=== PATIENT | female | born 1940 | race Caucasian/White ===

== ENCOUNTER 2016-08-13 16:32 | Inpatient (IN) | payer OTHER ==
[2016-08-13 16:50] VITALS: RESP 16
[2016-08-13] MEDS ORDERED: NS 1,000 ML IV ONE (17:00)
--- NOTE | 2016-08-13 17:00 | EDPHY ---
H & P Time Seen by Provider: 08/13/16 16:55 HPI/ROS: Chief complaint. Abdominal pain HPI. 76-year-old female presents emergency department with abdominal pain for 1 month. It was felt to be constipation 1 month ago and she has been being treated with MiraLax. Increased discomfort over the past 10 days worse with movement and so she quit riding her bike and walking. She has had decreased appetite. However in the past 24 hours she has had 3 or 4 episodes of vomiting per her . Her pain is generalized and somewhat crampy. She feels she is distended. The patient and her here gurgling in her abdomen. She has had her appendix and gallbladder removed. She has had no fever, chest pain , shortness of breath. She denies urinary symptoms. Saw her physician today who referred her to the emergency department. They are trying to be evaluated by GI and have an appointment in September Constitutional. no fever/chills, no weakness Eyes. no problems with vision ENT. no sore throat, no nasal drainage Cardiovascular. no chest pain Respiratory. no shortness of breath, no cough Abdominal. Abdominal pain with nausea and vomiting . no problems urinating MS. no calf pain/swelling, no neck/back pain, no joint pain Skin. no rash Lymph. no swollen glands Neuro. 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 ENT, Mouth: Mucous membranes are moist. Respiratory: There are no retractions, lungs are clear to auscultation. Cardiovascular: Regular rate and rhythm. Gastrointestinal: Abdomen is soft diffusely tender. No masses. Increased bowel sounds. Neurological: Awake and alert, sensory and motor exams grossly normal. Skin: Warm and dry, no rashes. Musculoskeletal: Neck is supple nontender. Extremities symmetrical, full range of motion. Psychiatric: Patient is oriented X 3, there is no agitation. Constitutional: Initial Vital Signs Temperature (C) 36.5 C 08/13/16 16:47 Heart Rate 72 08/13/16 16:47 Respiratory Rate 16 08/13/16 16:47 Blood Pressure 133/81 H 08/13/16 16:47 O2 Sat (%) 95 08/13/16 16:47 O2 Delivery Mode Room Air Allergies/Adverse Reactions: Penicillins Allergy (Verified 03/30/15 16:59) Medical Decision Making - Diagnostics Imaging Results: Imaging Impressions Abdomen CT 08/13/16 17:00 Impression: 1. Mildly dilated loops of large and small bowel may reflect enteritis or given the chronicity of symptomatology this may represent a problem with bowel motility. 2. See above report for additional findings. Results called and discussed with LORENZO SPEARS M.D. on 08/13/2016 at 18:50 CT abdomen pelvis with IV contrast shows mildly dilated loops of intestine. No air-fluid levels. No free air. Trace fluid in the pelvis. No evidence for small bowel obstruction. Surgically absent gallbladder, appendix, uterus. There is diffuse constipation Procedures: IV normal saline, Zofran ED Course/Re-evaluation: Re-evaluation at 6:50 p.m.--patient is stable. She, her , and I discussed imaging and lab results. We discussed treatment plan. They feel that she is really unable to go home and they are unable to continue her care at home. I recommended Admission they expressed understanding and agreement I consulted discussed case with Dr. Duke, gastroenterology, who will see the patient in the hospital I consulted and discussed case with Dr. Nuñez, hospitalist, who agrees to the admission Differential Diagnosis: I considered small-bowel obstruction, urinary tract infection, diverticulitis, constipation. This looks like a functional constipation with slow transit - Data Points Laboratory Results: Laboratory Results 08/13/16 17:11 08/13/16 17:11 08/13/16 08/13/16 08/13/16 17:55 17:11 17:11 WBC 6.70 10^3/uL 10^3/uL (3.80-9.50) RBC 4.45 10^6/uL 10^6/uL (4.18-5.33) Hgb 14.4 g/dL g/dL (12.6-16.3) Hct 41.9 % % (38.0-47.0) MCV 94.2 fL fL (81.5-99.8) MCH 32.4 pg pg (27.9-34.1) MCHC 34.4 g/dL g/dL (32.4-36.7) RDW 12.5 % % (11.5-15.2) Plt Count 231 10^3/uL 10^3/uL (150-400) MPV 11.9 fL H fL (8.7-11.7) Neut % (Auto) 68.8 % % (39.3-74.2) Lymph % (Auto) 24.6 % % (15.0-45.0) [place] % (Auto) 5.2 % % (4.5-13.0) Eos % (Auto) 0.7 % % (0.6-7.6) Baso % (Auto) 0.4 % % (0.3-1.7) Nucleat RBC Rel Count 0.0 % % (0.0-0.2) Absolute Neuts (auto) 4.60 10^3/uL 10^3/uL (1.70-6.50) Absolute Lymphs (auto) 1.65 10^3/uL 10^3/uL (1.00-3.00) Absolute Monos (auto) 0.35 10^3/uL 10^3/uL (0.30-0.80) Absolute Eos (auto) 0.05 10^3/uL 10^3/uL (0.03-0.40) Absolute Basos (auto) 0.03 10^3/uL 10^3/uL (0.02-0.10) Absolute Nucleated RBC 0.00 10^3/uL 10^3/uL (0-0.01) Immature Gran % 0.3 % % (0.0-1.1) Immature Gran # 0.02 10^3/uL 10^3/uL (0.00-0.10) Sodium 141 mEq/L mEq/L (134-144) Potassium 4.5 mEq/L mEq/L (3.5-5.2) Chloride 104 mEq/L mEq/L (97-110) Carbon Dioxide 26 mEq/l mEq/l (22-31) Anion Gap 11 mEq/L mEq/L (8-16) BUN 12 mg/dL mg/dL (7-23) Creatinine 0.6 mg/dL mg/dL (0.6-1.0) Estimated GFR > 60 Glucose 85 mg/dL mg/dL (70-100) Calcium 9.7 mg/dL mg/dL (8.5-10.4) Total Bilirubin 1.1 mg/dL mg/dL (0.1-1.4) Conjugated Bilirubin 0.1 mg/dL mg/dL (0.0-0.5) Unconjugated Bilirubin 1.0 mg/dL mg/dL (0.0-1.1) AST 48 IU/L H IU/L (14-46) ALT 62 IU/L H IU/L (9-52) Alkaline Phosphatase 77 IU/L IU/L (38-126) Total Protein 7.3 g/dL g/dL (6.3-8.2) Albumin 4.7 g/dL g/dL (3.5-5.0) Lipase 125.0 IU/L IU/L (23-300) Urine Color PALE YELLOW Urine Appearance CLEAR Urine pH 6.0 (5.0-7.5) Ur Specific [place] 1.006 (1.002-1.030) Urine Protein NEGATIVE (NEGATIVE) Urine Ketones TRACE H (NEGATIVE) Urine Blood NEGATIVE (NEGATIVE) Urine Nitrate NEGATIVE (NEGATIVE) Urine Bilirubin NEGATIVE (NEGATIVE) Urine Urobilinogen NEGATIVE EU EU (0.2-1.0) Ur Leukocyte Esterase NEGATIVE (NEGATIVE) Urine Glucose NEGATIVE (NEGATIVE) Medications Given: Discontinued Medications Sodium Chloride (Ns) 1,000 mls @ 0 mls/hr IV ONCE ONE PRN Reason: Wide Open Stop: 08/13/16 17:01 Last Admin: 08/13/16 17:02 Dose: 1,000 mls Ondansetron HCl (Zofran) 4 mg IVP EDNOW ONE Stop: 08/13/16 17:20 Last Admin: 08/13/16 17:27 Dose: 4 mg Departure - Departure Disposition: [facility] Acute Clinical Impression: Abdominal pain Qualifiers: Abdominal location: generalized Qualified Code(s): R10.84 - Generalized abdominal pain Condition: Fair Referrals: Aubrey Townsend MD [Primary Care Provider] - As per Instructions
[2016-08-13] MEDS ORDERED: ONDANSETRON 4 MG/2 ML VIAL IVP ONE (17:19)
[2016-08-13] MEDS ORDERED: ONDANSETRON 4 MG/2 ML VIAL ONE (17:19)
[2016-08-13 17:31] LABS: % IMMATURE GRANULYOCYTES 0.3 % (0.0-1.1); ABSOLUTE IMMATURE GRANULOCYTES 0.02 10^3/uL (0.00-0.10); ADD DIFF? NO; ADD MORPH? NO; ADD SCAN? NO; ATYPICAL LYMPHOCYTE FLAG 10 (0-99); FRAGMENT RBC FLAG 0 (0-99); HEMATOCRIT 41.9 % (38.0-47.0); HEMOGLOBIN 14.4 g/dL (12.6-16.3); LEFT SHIFT FLG 0 (0-99); LIPEMIA HEMOLYSIS FLAG 90 (0-99); MEAN CELL HEMOGLOBIN 32.4 pg (27.9-34.1); MEAN CELL HEMOGLOBIN CONCENTR. 34.4 g/dL (32.4-36.7); MEAN CELL VOLUME 94.2 fL (81.5-99.8); MEAN PLATELET VOLUME 11.9 fL (8.7-11.7); PLATELET CLUMPS FLAG 0 (0-99); PLATELET COUNT 231 10^3/uL (150-400); RED BLOOD CELL COUNT 4.45 10^6/uL (4.18-5.33); RED CELL DISTRIBUTION WIDTH 12.5 % (11.5-15.2)
[2016-08-13 17:33] LABS: ALANINE AMINOTRANSFERASE 62 IU/L (9-52); ALBUMIN 4.7 g/dL (3.5-5.0); ALKALINE PHOSPHATASE 77 IU/L (38-126); ANION GAP 11 mEq/L (8-16); ASPARTATE AMINOTRANSFERASE 48 IU/L (14-46); BILIRUBIN,TOTAL 1.1 mg/dL (0.1-1.4); BILIRUBIN-CONJUGATED 0.1 mg/dL (0.0-0.5); CALCIUM 9.7 mg/dL (8.5-10.4); CARBON DIOXIDE 26 mEq/l (22-31); CHLORIDE 104 mEq/L (97-110); CREATININE 0.6 mg/dL (0.6-1.0); GLOMERULAR FILTRATION RATE > 60; GLUCOSE 85 mg/dL (70-100); POTASSIUM 4.5 mEq/L (3.5-5.2); SODIUM 141 mEq/L (134-144); TOTAL PROTEIN 7.3 g/dL (6.3-8.2)
[2016-08-13] MEDS ORDERED: IOPAMIDOL (ISOVUE-300) 100 ML BTL ONE (17:44)
[2016-08-13 18:11] LABS: COLOR PALE YELLOW; LEUKOCYTE ESTERASE,URINE NEGATIVE (NEGATIVE); NITRITE,URINE NEGATIVE (NEGATIVE)
[2016-08-13] MEDS ORDERED: METOCLOPRAMIDE 10 MG/2 ML VIAL IVP PRN (19:32)
[2016-08-13] MEDS ORDERED: METOCLOPRAMIDE 10 MG TAB PO PRN (19:32)
[2016-08-13] MEDS ORDERED: MAGNESIUM HYDROXIDE 30 ML UDCUP PO PRN (19:34)
[2016-08-13] MEDS ORDERED: BISACODYL 10 MG SUPP PR PRN (19:34)
[2016-08-13] MEDS ORDERED: POLYETHYLENE GLYCOL 3350 17 GM PKT PO PRN (19:34)
[2016-08-13] MEDS ORDERED: LACTULOSE 20 GM/30 ML UDCUP PO PRN (19:34)
[2016-08-13] MEDS ORDERED: NS 1,000 ML IV SCH (19:45)
[2016-08-13] MEDS ORDERED: BISACODYL 10 MG SUPP PR ONE (20:04)
--- NOTE | 2016-08-13 20:12 | PDGENHP ---
History and Physical - Chief Complaint acute on chronic abdominal pain - History of Present Illness PCP: Dr. Townsend Neuro: Dr. Samy Gong HPI: 76 yo F p/w acute on chronic abdominal pain characterized as "bloating" sensation located diffusely throughout, onset approx 4 months ago, duration persistent thereafter. Sensation increases throughout the day such that the patient feels like she is visibly distended by nightfall. She has associated nausea which is exacerbated by PO intake of solids and liquids, and she vomited 3 times on the date of presentation. She endorses chronic constipation and scant , hard BMs, which are somewhat alleviated by miralax, but this Rx does exacerbate her nausea, so she has not been able to regularly tolerate it. She has not been taking any pain Rx or nausea Rx. Her is concerned that she has not been able to tolerate PO today. She was seen by Dr. Hernandez and referred to the ED. Her outpatient GI consultation is not until September. Urine output has been good, no dysuria, no other symptoms. Of note, she did increase her excelon patch dosage approx 4 months ago. History Information - Allergies/Home Medication List Allergies/Adverse Reactions: Penicillins Allergy (Verified 03/30/15 16:59) Home Medications: Carbidopa/Levodopa [Rytary ER 23.75 mg-95 mg Cap] 1 cap PO TID 08/13/16 [Last Taken 08/12/16] Nilotinib HCl [Tasigna] 150 mg PO DAILY 08/13/16 [Last Taken 08/12/16] Rivastigmine [Exelon 9.5mg/24 hrs] 1 patch TP DAILY 08/13/16 [Last Taken ] I have personally reviewed and updated: family history, medical history, social history, surgical history - Past Medical History Additional medical history: Parkinson's Disease variant. Mild Dementia - Surgical History Reports: appendectomy, cholecystectomy, hysterectomy - Family History Additional family history: no bowel issues in siblings - Social History Smoking Status: Never smoked Alcohol Use: Occasionally Drug Use: None Additional social history: active, independent ADLs Review of Systems ROS: 10pt was reviewed & negative except for what was stated in HPI & below Gastrointestinal: Reports: vomitting, abdominal pain, constipation, nausea Physical Exam Temp Pulse Resp BP Pulse Ox 36.7 C 73 16 142/76 H 96 08/13/16 20:05 08/13/16 20:05 08/13/16 20:05 08/13/16 20:05 08/13/16 20:05 Constitutional: no apparent distress, not in pain, uncomfortable, other (thin appearing) Eyes: PERRL, anicteric sclera, EOMI Ears, Nose, Mouth, Throat: moist mucous membranes, hearing normal, ears appear normal, no oral mucosal ulcers Cardiovascular: regular rate and rhythym, no murmur, rub, or gallop, No edema Respiratory: no respiratory distress, no rales or rhonchi, clear to auscultation Gastrointestinal: normoactive bowel sounds, tenderness (mild w/ intermittent firm distended bowels palpated, palpable abd aorta), No guarding, No distension Genitourinary: no bladder fullness, no bladder tenderness Neurologic: AAOx3, No facial droop Psychiatric: interacting appropriately, not encephalopathic, thought process linear, anxious, No agitated Lab Data & Imaging Review 08/13/16 17:11 08/13/16 17:11 WBC 6.70 10^3/uL (3.80-9.50) 08/13/16 17:11 RBC 4.45 10^6/uL (4.18-5.33) 08/13/16 17:11 Hgb 14.4 g/dL (12.6-16.3) 08/13/16 17:11 Hct 41.9 % (38.0-47.0) 08/13/16 17:11 MCV 94.2 fL (81.5-99.8) 08/13/16 17:11 MCH 32.4 pg (27.9-34.1) 08/13/16 17:11 MCHC 34.4 g/dL (32.4-36.7) 08/13/16 17:11 RDW 12.5 % (11.5-15.2) 08/13/16 17:11 Plt Count 231 10^3/uL (150-400) 08/13/16 17:11 MPV 11.9 fL (8.7-11.7) H 08/13/16 17:11 Neut % (Auto) 68.8 % (39.3-74.2) 08/13/16 17:11 Lymph % (Auto) 24.6 % (15.0-45.0) 08/13/16 17:11 [place] % (Auto) 5.2 % (4.5-13.0) 08/13/16 17:11 Eos % (Auto) 0.7 % (0.6-7.6) 08/13/16 17:11 Baso % (Auto) 0.4 % (0.3-1.7) 08/13/16 17:11 Nucleat RBC Rel Count 0.0 % (0.0-0.2) 08/13/16 17:11 Absolute Neuts (auto) 4.60 10^3/uL (1.70-6.50) 08/13/16 17:11 Absolute Lymphs (auto) 1.65 10^3/uL (1.00-3.00) 08/13/16 17:11 Absolute Monos (auto) 0.35 10^3/uL (0.30-0.80) 08/13/16 17:11 Absolute Eos (auto) 0.05 10^3/uL (0.03-0.40) 08/13/16 17:11 Absolute Basos (auto) 0.03 10^3/uL (0.02-0.10) 08/13/16 17:11 Absolute Nucleated RBC 0.00 10^3/uL (0-0.01) 08/13/16 17:11 Immature Gran % 0.3 % (0.0-1.1) 08/13/16 17:11 Immature Gran # 0.02 10^3/uL (0.00-0.10) 08/13/16 17:11 Sodium 141 mEq/L (134-144) 08/13/16 17:11 Potassium 4.5 mEq/L (3.5-5.2) 08/13/16 17:11 Chloride 104 mEq/L (97-110) 08/13/16 17:11 Carbon Dioxide 26 mEq/l (22-31) 08/13/16 17:11 Anion Gap 11 mEq/L (8-16) 08/13/16 17:11 BUN 12 mg/dL (7-23) 08/13/16 17:11 Creatinine 0.6 mg/dL (0.6-1.0) 08/13/16 17:11 Estimated GFR > 60 08/13/16 17:11 Glucose 85 mg/dL (70-100) 08/13/16 17:11 Calcium 9.7 mg/dL (8.5-10.4) 08/13/16 17:11 Total Bilirubin 1.1 mg/dL (0.1-1.4) 08/13/16 17:11 Conjugated Bilirubin 0.1 mg/dL (0.0-0.5) 08/13/16 17:11 Unconjugated Bilirubin 1.0 mg/dL (0.0-1.1) 08/13/16 17:11 AST 48 IU/L (14-46) H 08/13/16 17:11 ALT 62 IU/L (9-52) H 08/13/16 17:11 Alkaline Phosphatase 77 IU/L (38-126) 08/13/16 17:11 Total Protein 7.3 g/dL (6.3-8.2) 08/13/16 17:11 Albumin 4.7 g/dL (3.5-5.0) 08/13/16 17:11 Lipase 125.0 IU/L (23-300) 08/13/16 17:11 Urine Color PALE YELLOW 08/13/16 17:55 Urine Appearance CLEAR 08/13/16 17:55 Urine pH 6.0 (5.0-7.5) 08/13/16 17:55 Ur Specific [place] 1.006 (1.002-1.030) 08/13/16 17:55 Urine Protein NEGATIVE (NEGATIVE) 08/13/16 17:55 Urine Ketones TRACE (NEGATIVE) H 08/13/16 17:55 Urine Blood NEGATIVE (NEGATIVE) 08/13/16 17:55 Urine Nitrate NEGATIVE (NEGATIVE) 08/13/16 17:55 Urine Bilirubin NEGATIVE (NEGATIVE) 08/13/16 17:55 Urine Urobilinogen NEGATIVE EU (0.2-1.0) 08/13/16 17:55 Ur Leukocyte Esterase NEGATIVE (NEGATIVE) 08/13/16 17:55 Urine Glucose NEGATIVE (NEGATIVE) 08/13/16 17:55 Visualized and Interpreted imaging results: Yes Interpretation: mildly dilated loops of bowel diffusely throughout, no focal obstruction Assessment & Plan Assessment: 76-year-old female presents with acute on chronic abdominal pain in the setting of chronic constipation Plan: 1. Abdominal pain. Acute on chronic, new problem this provider, further workup indicated. Occurring in the setting chronic constipation and suspected slow transit, potentially exacerbated by titration of rivastigmine approximately 4 months ago verses GI effect of dementia - discussed with Dr. Micheline Duke, consultation appreciated, she recommends enema at this time and then small-bowel follow-through tomorrow a.m. - will give bisacodyl suppository now, mineral oil enema thereafter if no bowel movement - placed on scheduled Senokot, bowel regiment with oral laxatives if tolerates - regular diet ordered but allow patient to advance from clears and light diet as tolerates - use Reglan as antibiotic of choice for promotility affect - void opiates for pain control if possible, utilize Tylenol - continue monitor liver panel with very mild transaminitis - patient has evidence hypovolemia with ketones in her urine, poor oral intake, patient currently unable to tolerate regular oral intake and she is unsafe to discharge home from the emergency department at this time, placed on observation and perform intervention as outlined above 2. Reported Parkinson's disease variant with mild dementia. Continue patient's home medications but consider reducing Exelon patch -reviewed outside records from our emergency department, Citlali Graham, 2015, mentions patient's Parkinson's disease at that time Diet. Advance as tolerates Prophylaxis. High risk patient, Lovenox 40 Code. Full do not resuscitate per patient, is MPOA Disposition. Anticipated discharge 08/14/2016, pending further workup as outlined above
[2016-08-13] MEDS: Carbidopa/Levodopa [Rytary Er 23.75 Mg-95 Mg Cap] PO SCH (21:27)
[2016-08-13] MEDS: NILOTINIB HCL 150 MG PO SCH (21:27)
[2016-08-13] MEDS: RIVASTIGMINE TP SCH (21:27)
[2016-08-13] MEDS: SENNOSIDES/DOCUSATE SODIUM TAB PO SCH (21:36)
[2016-08-14] MEDS: ACETAMINOPHEN 325 MG TAB PO PRN ×2 (03:02→09:16)
[2016-08-14 05:04] LABS: ALANINE AMINOTRANSFERASE 23 IU/L (9-52); ALBUMIN 3.6 g/dL (3.5-5.0); ALKALINE PHOSPHATASE 57 IU/L (38-126); ANION GAP 9 mEq/L (8-16); ASPARTATE AMINOTRANSFERASE 35 IU/L (14-46); BILIRUBIN,TOTAL 1.1 mg/dL (0.1-1.4); CALCIUM 8.6 mg/dL (8.5-10.4); CARBON DIOXIDE 25 mEq/l (22-31); CHLORIDE 109 mEq/L (97-110); CREATININE 0.7 mg/dL (0.6-1.0); GLOMERULAR FILTRATION RATE > 60; GLUCOSE 77 mg/dL (70-100); POTASSIUM 4.4 mEq/L (3.5-5.2); SODIUM 143 mEq/L (134-144); TOTAL PROTEIN 5.5 g/dL (6.3-8.2)
[2016-08-14 07:07] VITALS: BP 140/69
[2016-08-14] MEDS ORDERED: ENOXAPARIN 40 MG/0.4 ML SYR SC SCH (09:00)
[2016-08-14] MEDS ORDERED: NS 1,000 ML IV SCH (09:15)
[2016-08-14] MEDS: Carbidopa/Levodopa [Rytary Er 23.75 Mg-95 Mg Cap] PO SCH (09:17)
[2016-08-14] MEDS: NILOTINIB HCL 150 MG PO SCH (09:18)
[2016-08-14] MEDS: RIVASTIGMINE TP SCH (09:19)
--- NOTE | 2016-08-14 09:23 | HOSPPROG ---
Hospitalist Progress Note Assessment/Plan: #Abdominal pain: present for 10 days -CT shows dilated small/large bowel. No abscess. Small bowel series today. If negative, trial Dels -appreciate GI consultation. Query if increase in Exelon causing increased pain -have Exelon dose reduced -GI appt tomorrow #Lewy body dementia: recent increase in Exelon which has GI side effects #Diet: as tolerated #DVT ppx: Lovenox #Disp: warrants inpt admission with ongoing abd pain, nausea. Subjective: still having and discomfort. Passing gas, no stool Objective: Vital Signs Temp Pulse Resp BP Pulse Ox 36.4 C 62 16 140/69 H 98 08/14/16 07:05 08/14/16 07:05 08/14/16 07:05 08/14/16 07:05 08/14/16 07:05 Laboratory Results 08/14/16 04:05 08/13/16 08/14/16 08/15/16 05:59 05:59 05:59 Intake Total 2182 Output Total 4 Balance 2178 - Physical Exam Constitutional: other (mild distress) Eyes: PERRL Ears, Nose, Mouth, Throat: moist mucous membranes, hearing normal Cardiovascular: regular rate and rhythym, no murmur, rub, or gallop Respiratory: no respiratory distress, no rales or rhonchi Gastrointestinal: normoactive bowel sounds, soft, non-tender abdomen, no palpable masses, other (notes diffuse abd pain with palpation, No rebound, guard. +BS throughout ) Genitourinary: no bladder fullness Skin: warm Musculoskeletal: full muscle strength Neurologic: CN II-XII Intact, other (resting hand tremor, BL ) Psychiatric: interacting appropriately, flat affect ICD10 Worksheet Patient Problems: Problems Problem Status Onset Abdominal pain Acute
[2016-08-14] MEDS: SENNOSIDES/DOCUSATE SODIUM TAB PO SCH (09:31)
--- NOTE | 2016-08-14 12:28 | GCON ---
[f rep st] CONSULTATION DATE OF CONSULTATION: 08/14/2016 CHIEF COMPLAINT: Abdominal pain. HPI: I am asked to see this patient in consultation for a chief complaint of abdominal pain. 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 For the past 10 days it has become to the point where she is unable to do activities that she usually enjoys, and has had decreased appetite. She also reports chronic nausea and feeling of early satiety, but has been having more vomiting for the past day or so, but no fevers or chills. No hematemesis. No blood in her stools. No melena. No diarrhea. She has tried MiraLAX, but felt that this significantly worsened her nausea. She does get significant bloating with gas generally throughout the day. Of note, she did have increase in her Parkinson's meds about 4 months ago , and thinks that many of her symptoms may have worsened with that. She states she has had a colonoscopy, but probably over 10 years ago. The patient has had multiple abdominal surgeries. Does have some concern about bladder prolapse. The patient had an enema yesterday without significant results. CT scan showed stool throughout the colon. There is mild dilation of small bowel and large bowel, but no mass is identified. ALLERGIES: Penicillin. CURRENT MEDICATIONS: At home her medications include: Rivastigmine, nilotinib , and Rytary. PAST MEDICAL HISTORY: Notable for Parkinson's disease, mild dementia, chronic constipation, abdominal pain. SOCIAL HISTORY: The patient denies tobacco use. FAMILY HISTORY: Negative for GI disease or colon cancer. REVIEW OF SYSTEMS: Review of 10 systems. I have performed a complete review of systems, which is negative except for the pertinent positives and negatives noted in HPI. PHYSICAL EXAM: VITAL SIGNS: The patient is afebrile at 36.4, BP 140/69, pulse 62, CONSTITUTIONAL: She is alert and oriented. EYES: No scleral icterus. HEENT: No oral lesions. CARDIOVASCULAR: Regular rate and rhythm. CHEST: Clear to auscultation. ABDOMEN: She does have notable bowel sounds. Her abdomen is soft. There is tenderness to palpation primarily in the left and right lower quadrant, but I detect no masses, no rebound. NEUROLOGIC: She has a Parkinson like tremor. SKIN: No obvious rashes. LABORATORY DATA: On admission, hematocrit was normal at 41.6 with white count of 6.7. Today chemistries are normal with normal LFTs. CT scan of the abdomen shows mild dilated small bowel loops and dilated large bowel with stool noted throughout the colon. ASSESSMENT: 1. Patient with chronic abdominal pain, which sounds like some acute exacerbation over the past week or so. 2. Chronic underlying constipation. 3. Nausea and vomiting. 4. Abnormal CT scan with some mild dilation of the large and small bowel. I think this is likely related secondary to her underlying constipation. I am concerned that many of her GI symptoms, particularly the nausea, may be a side effect of her Parkinson medication, and it does correlate with increasing symptoms with increasing her med dose. Chronic constipation is likely multifactorial, may be underlying idiopathic, but also could be worsened from her underlying Parkinson's disease and/or medications. PLAN: Recommend check upper GI small bowel follow-through to assure no obstruction. If negative, then could try Linzess. Would aim for the higher dose at 290 mcg daily to see if this will also help with abdominal pain. However, if this results in limiting diarrhea can decrease the dose at 145 mcg. Refer to her neurologist about adjusting her Parkinson's medication if possible. Suggest Zofran as needed for nausea. Of note, the patient does have GI followup already scheduled for tomorrow. So, if she is discharged today she could not keep that appointment to get established. Otherwise, we can reschedule. Thank you for this consult. /[id number]/MODL MTDD
[2016-08-14] MEDS ORDERED: ONDANSETRON 4 MG/2 ML VIAL IVP PRN (12:36)
[2016-08-14 15:11] VITALS: PULSE 64; TEMP 98.1; O2SAT 99
[2016-08-14] MEDS ORDERED: Carbidopa/Levodopa [Rytary Er 23.75 Mg-95 Mg Cap] PO SCH (16:00)
--- NOTE | 2016-08-15 06:40 | GDS ---
[f rep st] DISCHARGE SUMMARY DIAGNOSES: 1. Acute on chronic abdominal pain. 2. Chronic constipation. 3. Nausea/vomiting. 4. Lewy body dementia. CONSULTATIONS: Gastroenterology. 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 She reports the pain as be ing bloating in sensation and is diffuse, onset approximately 4 months ago. The sensation increases throughout the day, feels visibly distended by night fall. She has associated nausea that is worse colby by p.o. intake of solids and liquids. She vomited 3 times the day of admission. She does endor se chronic constipation and scant hard bowel movement. Recently her Exelon patch for dementia was increased by her neurologist approximately the same time that the symptoms occurred. HOSPITAL COURSE BY PROBLEM: 1. Acute on chronic abdominal pain: Suspect this is likely exacerbated by the increase of her Exel on. CT abdomen and pelvis was negative for acute abscess. Showed some mild dilatation of small and large bowel. Appreciate GI consultation. They recommended an upper GI series and small-bowel foll ow-through which demonstrated intermittent esophageal dysmotility, but the rest was normal. After t he study was completed, the patient and her wished to go home. She is to see her gastroente rologist tomorrow to establish care. 2. Chronic constipation: The patient was advised to increase fiber, fluids and bowel regimen. She had a bowel movement today. 3. Lewy body dementia. Will continue her home medications, but recommend that her Exelon dose be d ecreased per her outpatient physician. DISPOSITION: Patient is stable for discharge. FOLLOWUP: 1. Her neurologist. Dr. Oconnor. 2. Gastroenterology. 3. Decrease Exelon patch. /[id number]/MODL
[2016-08-15] MEDS ORDERED: NILOTINIB HCL 150 MG PO SCH (09:00)
== END 2016-08-14 20:02 | disposition home or self-care (01) | DRG 392 ==
LOC: INTOOBSV 19:26 → F3E 20:10 → OBSVTOIN 08-14 13:37
PROVIDERS: ADMIT Internal Medicine; ATTEND Internal Medicine
DX: K59.09 Other constipation (principal); G31.83 Neurocognitive disorder with Lewy bodies; F02.80 Dementia in other diseases classified elsewhere, unspecified severity, without behavioral disturbance, psychotic disturbance, mood disturbance, and anxiety; G89.29 Other chronic pain
CPT/HCPCS: 96374; G0378; J1650; J2405; Q9967

== ENCOUNTER 2017-06-29 12:43 | Emergency (ER) | payer OTHER ==
--- NOTE | 2017-06-29 13:02 | EDPHY ---
HPI/HX/ROS/PE/MDM Narrative: CHIEF COMPLAINT: Nausea, vomiting, diarrhea HPI: The patient is a 77 y/o female with a history of Parkinson's disease and multiple abdominal surgeries including a cholecystectomy and appendectomy complaining of nausea, vomiting, and diarrhea onset last night. One year ago she was seen in this emergency department for vomiting and constipation, which a follow up gastroenterology visit thought was due to dysmotility and her Exelon patch. They decreased her Exelon patch dosage and her symptoms improved. Yesterday, several hours after eating sliders at a restaurant she had multiple episodes of diarrhea. By 06:00 this morning, 7 hours ago, she had her last episode of diarrhea, but subsequently began to vomit. She has been vomiting persistently since then. Her did see 2 Exelon patches on the patient this morning, however she is only supposed to wear 1 at a time. She is currently complaining of abdominal pain, which she believes is due to the vomiting. She only feels like vomiting and does not feel like she will have more episodes of diarrhea. Denies blood in vomit or stool, fever, chest pain, urinary complaints, or being around people with similar symptoms. REVIEW OF SYSTEMS: Aside from elements discussed in the HPI, a comprehensive 10-point review of systems was reviewed and is negative. 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 ENT: Eyes are normal to inspection. ENT inspection normal. Neck: Normal inspection. Full range of motion. Respiratory: No respiratory distress. Breath sounds normal bilaterally. Cardiovascular: Regular rate and rhythm. Strong peripheral pulses. Normal cap refill. Abdomen: The abdomen is nontender to palpation. There are no peritoneal signs. There are normal bowel sounds. Back: Normal to inspection. No tenderness to palpation. Skin: Normal color. No rash. Warm and dry. Extremities: Normal appearance. Full range of motion. Neuro: Oriented x3. Normal motor function. Normal sensory function. ED Course: 1423: Patient's nurse has informed me that the patient is still complaining of an upset stomach but is no longer vomiting after 1L IV NS and 4mg IV Zofran. Abdominal x-ray ordered. 1520: I reviewed patient's abdominal x-ray. 1521: Reassessed patient and discussed imaging and laboratory findings. I have offered her admission, which she has politely declined. I have advised her to follow up with her PCP in the next week as well as take Zofran as prescribed. Return precautions provided; patient and her are comfortable with this plan. MDM: This patient presents with vomiting and abdominal pain. Possible etiologies include food poisoning or accidental doubling of her medication patch. We performed an extensive workup including lab work and XR, all of which are reassuring. On re-evaluation, the patient feels better. I offered her the options of advanced imaging here in the ED, admission for observation, or discharge home with strict return precautions. She and her have chosen the latter. They understand I cannot rule out significant abdominal pathology without further testing. - Data Points Imaging Results: Imaging Impressions Abdomen X-Ray 06/29/17 14:22 Impression: No obstruction identified. Imaging: I viewed and interpreted images myself Laboratory Results: Laboratory Results 06/29/17 13:00 06/29/17 13:00 06/29/17 06/29/17 06/29/17 14:35 13:00 13:00 WBC RBC Hgb Hct MCV MCH MCHC RDW Plt Count MPV Neut % (Auto) Lymph % (Auto) [place] % (Auto) Eos % (Auto) Baso % (Auto) Nucleat RBC Rel Count Absolute Neuts (auto) Absolute Lymphs (auto) Absolute Monos (auto) Absolute Eos (auto) Absolute Basos (auto) Absolute Nucleated RBC Immature Gran % Immature Gran # Sodium 142 mEq/L mEq/L (135-145) Potassium 4.5 mEq/L mEq/L (3.5-5.2) Chloride 105 mEq/L mEq/L (97-110) Carbon Dioxide 28 mEq/l mEq/l (22-31) Anion Gap 9 mEq/L mEq/L (8-16) BUN 17 mg/dL mg/dL (7-23) Creatinine 0.7 mg/dL mg/dL (0.6-1.0) Estimated GFR > 60 Glucose 108 mg/dL H mg/dL (70-100) Calcium 9.3 mg/dL mg/dL (8.5-10.4) Lipase 122 IU/L IU/L (23-300) Urine Color YELLOW Urine Appearance CLEAR Urine pH 6.0 (5.0-7.5) Ur Specific [place] 1.017 (1.002-1.030) Urine Protein NEGATIVE (NEGATIVE) Urine Ketones 1+ H (NEGATIVE) Urine Blood NEGATIVE (NEGATIVE) Urine Nitrate NEGATIVE (NEGATIVE) Urine Bilirubin NEGATIVE (NEGATIVE) Urine Urobilinogen NEGATIVE EU EU (0.2-1.0) Ur Leukocyte Esterase NEGATIVE (NEGATIVE) Urine Glucose NEGATIVE (NEGATIVE) 06/29/17 13:00 WBC 7.45 10^3/uL 10^3/uL (3.80-9.50) RBC 4.54 10^6/uL 10^6/uL (4.18-5.33) Hgb 14.4 g/dL g/dL (12.6-16.3) Hct 42.8 % % (38.0-47.0) MCV 94.3 fL fL (81.5-99.8) MCH 31.7 pg pg (27.9-34.1) MCHC 33.6 g/dL g/dL (32.4-36.7) RDW 12.5 % % (11.5-15.2) Plt Count 248 10^3/uL 10^3/uL (150-400) MPV 11.1 fL fL (8.7-11.7) Neut % (Auto) 80.2 % H % (39.3-74.2) Lymph % (Auto) 14.2 % L % (15.0-45.0) [place] % (Auto) 4.4 % L % (4.5-13.0) Eos % (Auto) 0.4 % L % (0.6-7.6) Baso % (Auto) 0.5 % % (0.3-1.7) Nucleat RBC Rel Count 0.0 % % (0.0-0.2) Absolute Neuts (auto) 5.97 10^3/uL 10^3/uL (1.70-6.50) Absolute Lymphs (auto) 1.06 10^3/uL 10^3/uL (1.00-3.00) Absolute Monos (auto) 0.33 10^3/uL 10^3/uL (0.30-0.80) Absolute Eos (auto) 0.03 10^3/uL 10^3/uL (0.03-0.40) Absolute Basos (auto) 0.04 10^3/uL 10^3/uL (0.02-0.10) Absolute Nucleated RBC 0.00 10^3/uL 10^3/uL (0-0.01) Immature Gran % 0.3 % % (0.0-1.1) Immature Gran # 0.02 10^3/uL 10^3/uL (0.00-0.10) Sodium Potassium Chloride Carbon Dioxide Anion Gap BUN Creatinine Estimated GFR Glucose Calcium Lipase Urine Color Urine Appearance Urine pH Ur Specific [place] Urine Protein Urine Ketones Urine Blood Urine Nitrate Urine Bilirubin Urine Urobilinogen Ur Leukocyte Esterase Urine Glucose Medications Given: Discontinued Medications Sodium Chloride (Ns) 1,000 mls @ 0 mls/hr IV EDNOW ONE; Wide Open PRN Reason: Protocol Stop: 06/29/17 13:05 Last Admin: 06/29/17 13:07 Dose: 1,000 mls Ondansetron HCl (Zofran) 4 mg IVP EDNOW ONE Stop: 06/29/17 13:06 Last Admin: 06/29/17 13:07 Dose: 4 mg General Time Seen by Provider: 06/29/17 12:51 Initial Vital Signs: Initial Vital Signs Temperature (C) 36.4 C 06/29/17 12:46 Heart Rate 64 06/29/17 12:46 Respiratory Rate 18 06/29/17 12:46 Blood Pressure 165/66 H 06/29/17 12:46 O2 Sat (%) 98 06/29/17 12:46 O2 Delivery Mode Room Air Allergies/Adverse Reactions: Penicillins Allergy (Verified 06/29/17 12:44) Home Medications: Medication Instructions Recorded Carbidopa/Levodopa [Rytary ER 1 cap PO HS 08/13/16 23.75 mg-95 mg Cap] Nilotinib HCl [Tasigna] 150 mg PO HS 08/13/16 Rivastigmine [Exelon 9.5mg/24 hrs] 1 patch TP HS 08/13/16 Departure - Departure Disposition: Home, Routine, Self-Care Clinical Impression: Nausea & vomiting, Diarrhea Condition: Good Instructions: Acute Nausea and Vomiting (ED), Acute Diarrhea (ED) Additional Instructions: 1. Increase fluid intake. 2. Take 4mg oral Zofran as needed for nausea. 3. Follow-up with your primary doctor within 72 hours. 4. Return to the Emergency Department for fever, chest pain, shortness of breath , increasing pain, or other worsening of condition. Referrals: Aubrey Townsend MD [Primary Care Provider] - As per Instructions Report Scribed for: Brandon Longo Report Scribed by: Kathie Cramer Date of Report: 06/29/17 Time of Report: 13:02 Physician Review and Approval Statement: Portions of this note were transcribed by an ED scribe. I personally performed the history, physical exam, and medical decision making; and confirm the accuracy of the information in the transcribed note.
[2017-06-29] MEDS ORDERED: NS 1,000 ML IV ONE (13:04)
[2017-06-29] MEDS ORDERED: ONDANSETRON 4 MG/2 ML VIAL ONE (13:04)
[2017-06-29] MEDS ORDERED: ONDANSETRON 4 MG/2 ML VIAL IVP ONE (13:05)
[2017-06-29 13:10] LABS: PLATELET COUNT 248 10^3/uL (150-400)
[2017-06-29] MEDS ORDERED: ONDANSETRON 4MG PREPACK#2 BTL TAKEHOME ONE (15:27)
[2017-06-29 15:35] VITALS: BP 148/66
== END 2017-06-29 15:25 | disposition home or self-care (01) ==
DX: R11.2 Nausea with vomiting, unspecified (principal); R19.7 Diarrhea, unspecified; E86.9 Volume depletion, unspecified; G20 Parkinson's disease
CPT/HCPCS: 74018; 96361; 96374; 99284; J2405

== ENCOUNTER → 2017-10-29 | Outpatient (CLI) | payer OTHER | LOC: FIMAGING 10:04 | PROVIDERS: ATTEND Internal Medicine | DX: M16.0 Bilateral primary osteoarthritis of hip (principal); M53.3 Sacrococcygeal disorders, not elsewhere classified ==

== ENCOUNTER 2017-12-06 16:31 | Emergency (ER) | payer OTHER ==
--- NOTE | 2017-12-06 17:18 | EDPHY ---
H & P Stated Complaint: Sob x months--pcp unable to get pulse ox reading today - Personal History Tetanus Vaccine Date: <10 yrs - Medical/Surgical History Hx Asthma: No Hx Chronic Respiratory Disease: No Hx Diabetes: No Hx Cardiac Disease: No Hx Renal Disease: No Hx Cirrhosis: No Hx Alcoholism: No Hx HIV/AIDS: No Hx Splenectomy or Spleen Trauma: No Other PMH: PARKINSONS/APPY/HYSTERECTOMY/CHOLY, memory issues, c-sections - Social History Smoking Status: Never smoked Time Seen by Provider: 12/06/17 17:00 HPI/ROS: Chief complaint: Shortness of breath History of present illness: Natalia is a 77-year-old female who presents to the emergency department with her for evaluation of shortness of breath. She reports she has had intermittent shortness of breath for the last few months. No reported precipitating factors. No alleviating factors. Symptoms occur every few days. The shortness of breath will last for a few hours. During this time she is unable to find a position of comfort. Initially her and her thought was from the heat of the summer or possibly anxiety. However, it has become so persistent and uncomfortable that she is not sure if an underlying issue is causing the shortness of breath and anxiety or the anxiety is causing the shortness of breath. There is no report of fever, cough or other cold symptoms. No report of chest pain. No pain or swelling in the legs. She saw her primary care doctor today, Dr. Aziza Borden, they were unable to get pulse oximetry in the office and therefore sent her to the emergency department for evaluation. Review of systems: A 10 point review of systems was obtained and other than described above was negative (Alex Rose) - Physical Exam Exam: General Appearance: Alert, nontoxic, resting tremor, appears mildly anxious/ uncomfortable. Eyes: Pupils equal and round no pallor or injection. ENT, Mouth: Mucous membranes moist. Respiratory: There are no retractions, lungs are clear to auscultation. Cardiovascular: Regular rate and rhythm. Gastrointestinal: Abdomen is soft and non tender, no masses, bowel sounds normal. Neurological: Alert. Strength and sensation intact and symmetrical. Skin: Warm and dry, no rashes. Musculoskeletal: Neck is supple non tender. Extremities are symmetrical, full range of motion. Psychiatric: Patient is oriented X 3, there is no agitation. (Alex Rose) Constitutional: Initial Vital Signs Temperature (C) 36.7 C 12/06/17 16:39 Heart Rate 85 12/06/17 16:39 Respiratory Rate 16 12/06/17 16:39 Blood Pressure 118/95 H 12/06/17 16:39 O2 Sat (%) 92 12/06/17 16:39 O2 Delivery Mode Room Air Allergies/Adverse Reactions: Penicillins Allergy (Verified 06/29/17 12:44) Home Medications: Medication Instructions Recorded Carbidopa/Levodopa [Rytary ER 1 cap PO HS 08/13/16 23.75 mg-95 mg Cap] Nilotinib HCl [Tasigna] 150 mg PO HS 08/13/16 Rivastigmine [Exelon 9.5mg/24 hrs] 1 patch TP HS 08/13/16 Medical Decision Making - Diagnostics Imaging: I viewed and interpreted images myself ED Course/Re-evaluation: The patient was discussed at length with my secondary supervising physician Dr. Sammy Regalado. Patient presents to the emergency department for evaluation of intermittent dyspnea for the last few months. She has been followed by her primary care doctor Dr. Aziza Borden for this problem. Today in clinic they were unable to get a good pulse oximetry reading and she was sent here for further evaluation and care. Her evaluation here is largely unremarkable including normal CBC, chemistry, D-dimer, troponin,only a mildly elevated BNP, largely normal chest x-ray, EKG grossly unremarkable, baseline is difficult due to underlying tremor. She asked for oxygen in the emergency department although she has not been hypoxic in the emergency department. She was given supplemental oxygen at 2 liters/minute by nasal cannula and felt better on it. After a full evaluation we discussed that I had not found any significant findings to explain her symptoms. We discussed a trial of Ativan and she was given 0.5 mg IV. She was observed after the administration of this medication and stated she felt better. We have discussed admission versus discharge home. She would like to be discharged home. She is with her . 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 They are comfortable going home. I have discussed the importance of close follow-up with her primary care doctor for further evaluation and care. They were given strict return precautions. They voiced understanding and agreement with plan. (Alex Rose) I did not see this patient while she was in the emergency department. However her care was discussed with Dr. Borden and the PA while the patient was in the department. I agree with treatment plan and management (Sammy Regalado) Differential Diagnosis: Included but not limited to anxiety, pulmonary embolism, cardiac dysrhythmia, ACS, pulmonary infections, musculoskeletal pain (Alex Rose) - Data Points Laboratory Results: Laboratory Results 12/06/17 17:14 12/06/17 17:14 Medications Given: Discontinued Medications Lorazepam (Ativan Injection) 0.5 mg IVP EDNOW ONE Stop: 12/06/17 18:19 Last Admin: 12/06/17 18:42 Dose: 0.5 mg Point of Care Test Results: Chemistry 12/06/17 17:23 POC Troponin I 0.01 ng/mL ng/mL (0.00-0.08) Departure - Departure Disposition: Home, Routine, Self-Care Clinical Impression: HTN (hypertension) Dyspnea Qualifiers: Dyspnea type: unspecified Qualified Code(s): R06.00 - Dyspnea, unspecified Condition: Good Instructions: Dyspnea (ED) Additional Instructions: Please follow-up with your primary care doctor on Saturday for recheck without fail If symptoms worsen or new symptoms develop return to the emergency room for recheck Referrals: Aziza Borden MD [Primary Care Provider] - As per Instructions
[2017-12-06 17:33] LABS: PLATELET COUNT 285 10^3/uL (150-400)
[2017-12-06] MEDS ORDERED: LORazepam 2 MG/ML INJ IVP ONE (18:18)
--- NOTE | 2017-12-06 18:56 | CPEKG ---
Test Reason : OPEN Blood Pressure : / mmHG Vent. Rate : 073 BPM Atrial Rate : 072 BPM P-R Int : 140 ms QRS Dur : 092 ms QT Int : 447 ms P-R-T Axes : 087 083 073 degrees QTc Int : 493 ms Borderline right axis deviation Borderline prolonged QT interval Confirmed by Aryan Zimmer ([id number]) on 12/06/2017 6:56:11 PM Referred By: Confirmed By:Aryan Zimmer
[2017-12-06 19:35] VITALS: BP 177/91
== END 2017-12-06 19:34 | disposition home or self-care (01) ==
DX: R06.02 Shortness of breath (principal); I10 Essential (primary) hypertension; G20 Parkinson's disease
CPT/HCPCS: 71046; 93005; 96374; 99285; J2060; 84484-PO

== ENCOUNTER 2018-05-25 11:43 | Inpatient (IN) | payer OTHER ==
--- NOTE | 2018-05-25 12:48 | EDPHY ---
H & P Time Seen by Provider: 05/25/18 12:47 HPI/ROS: Chief complaint. Fall HPI. 77-year-old female mechanical fall this morning. She tripped on a step and fell landing on her right side. Unable to get up, stand or bear weight. Complains of pain to the right hip and right groin. She tells me she did not strike her head or lose consciousness. She does complain of neck pain. Her tells me that she did not complain of any neck pain after the fall and is surprised that she complains of any neck pain. Otherwise no back pain, chest pain, shortness of breath, abdominal pain. Patient was well prior to fall. She is not on blood thinners. ROS 10 systems were reviewed and negative with the exception of the elements mentioned in the history of present illness Past Medical/Surgical History: Parkinson's disease, appendectomy hysterectomy, cholecystitis cystectomy, dementia Social History: , nonsmoker, no alcohol Smoking Status: Never smoked Physical Exam: General Appearance: Alert well-developed female moderate distress vital signs are stable Eyes: Pupils equal and round no pallor or injection. ENT, head without evidence of trauma. No oral pharyngeal or dental trauma. Respiratory: There are no retractions, lungs are clear to auscultation. Cardiovascular: Regular rate and rhythm. Gastrointestinal: Abdomen is soft and nontender, no masses, bowel sounds normal. Neurological: Awake and alert, sensory and motor exams grossly normal. Skin: Warm and dry, no rashes. Musculoskeletal: Neck is diffusely tender Extremities pain right groin and right hip. Increased pain with range of motion Psychiatric: Patient is oriented X 3, there is no agitation. Constitutional: Initial Vital Signs Temperature (C) 36.4 C 05/25/18 12:10 Heart Rate 95 05/25/18 12:10 Respiratory Rate 16 05/25/18 12:10 Blood Pressure 148/100 H 05/25/18 12:10 O2 Sat (%) 92 05/25/18 12:10 O2 Delivery Mode Room Air Allergies/Adverse Reactions: Penicillins Allergy (Verified 05/25/18 12:09) Home Medications: Medication Instructions Recorded Carbidopa/Levodopa [Rytary ER 1 cap PO QID 08/13/16 23.75 mg-95 mg Cap] LORazepam [Ativan (*)] 1 mg PO DAILY PRN 05/25/18 Linaclotide [Linzess] 145 mcg PO 05/25/18 QUEtiapine FUMARATE [Seroquel 25 25 mg PO QID 05/25/18 mg (*)] Rasagiline Mesylate 1 mg PO HS 05/25/18 Rivastigmine [Exelon 9.5mg/24 hrs] 1 each TD HS 05/25/18 Sertraline HCl [Zoloft 25mg (*)] 25 mg PO HS 05/25/18 Medical Decision Making - Diagnostics EKG Interpretation: EKG interpreted by me shows normal sinus rhythm normal interval and axis. QRS is normal there is no significant ST elevation or depression. No arrhythmia. The rate is 82 Imaging Results: One-view chest x-ray interpreted by me is normal Procedures: IV normal saline. Morphine for pain ED Course/Re-evaluation: Re-evaluation 2:00 p.m.. Patient is stable. Patient and family and I discussed imaging and lab work. We discussed treatment plan including recommendation for admission for hip fracture repair. They expressed understanding and agreement I consulted discussed case with Dr. Damian, hospitalist who agrees to the admission I consulted discussed case Dr. Melton for orthopedic surgery who will see the patient. On re-evaluation patient has no neck pain. Palpation passive and active range of motion elicit no tenderness. Differential Diagnosis: Fall with hip fracture. Initially after fall the patient told her she did not have any neck pain. She told me initially she maybe had some mild neck pain. On re-evaluation she does not have any neck pain. She does have confusion and dementia. Again no evidence for trauma to her neck or now pain to her neck - Data Points Laboratory Results: Laboratory Results 05/25/18 13:30 05/25/18 13:30 05/25/18 05/25/18 05/25/18 13:37 13:30 13:30 WBC RBC Hgb Hct MCV MCH MCHC RDW Plt Count MPV Neut % (Auto) Lymph % (Auto) [place] % (Auto) Eos % (Auto) Baso % (Auto) Nucleat RBC Rel Count Absolute Neuts (auto) Absolute Lymphs (auto) Absolute Monos (auto) Absolute Eos (auto) Absolute Basos (auto) Absolute Nucleated RBC Immature Gran % Immature Gran # PT 12.3 SEC SEC (12.0-15.0) INR 0.95 (0.83-1.16) APTT 27.1 SEC SEC (23.0-38.0) Sodium 140 mEq/L mEq/L (135-145) Potassium 4.0 mEq/L mEq/L (3.5-5.2) Chloride 104 mEq/L mEq/L (97-110) Carbon Dioxide 26 mEq/l mEq/l (22-31) Anion Gap 10 mEq/L mEq/L (6-14) BUN 23 mg/dL mg/dL (7-23) Creatinine 0.7 mg/dL mg/dL (0.6-1.0) Estimated GFR > 60 Glucose 86 mg/dL mg/dL (70-100) Calcium 9.4 mg/dL mg/dL (8.5-10.4) POC Troponin I 0.00 ng/mL ng/mL (0.00-0.08) 05/25/18 13:30 WBC 13.10 10^3/uL H 10^3/uL (3.80-9.50) RBC 4.07 10^6/uL L 10^6/uL (4.18-5.33) Hgb 13.1 g/dL g/dL (12.6-16.3) Hct 39.5 % % (38.0-47.0) MCV 97.1 fL fL (81.5-99.8) MCH 32.2 pg pg (27.9-34.1) MCHC 33.2 g/dL g/dL (32.4-36.7) RDW 12.2 % % (11.5-15.2) Plt Count 223 10^3/uL 10^3/uL (150-400) MPV 10.9 fL fL (8.7-11.7) Neut % (Auto) 90.6 % H % (39.3-74.2) Lymph % (Auto) 4.7 % L % (15.0-45.0) [place] % (Auto) 3.7 % L % (4.5-13.0) Eos % (Auto) 0.3 % L % (0.6-7.6) Baso % (Auto) 0.2 % L % (0.3-1.7) Nucleat RBC Rel Count 0.0 % % (0.0-0.2) Absolute Neuts (auto) 11.86 10^3/uL H 10^3/uL (1.70-6.50) Absolute Lymphs (auto) 0.61 10^3/uL L 10^3/uL (1.00-3.00) Absolute Monos (auto) 0.49 10^3/uL 10^3/uL (0.30-0.80) Absolute Eos (auto) 0.04 10^3/uL 10^3/uL (0.03-0.40) Absolute Basos (auto) 0.03 10^3/uL 10^3/uL (0.02-0.10) Absolute Nucleated RBC 0.00 10^3/uL 10^3/uL (0-0.01) Immature Gran % 0.5 % % (0.0-1.1) Immature Gran # 0.07 10^3/uL 10^3/uL (0.00-0.10) PT INR APTT Sodium Potassium Chloride Carbon Dioxide Anion Gap BUN Creatinine Estimated GFR Glucose Calcium POC Troponin I Medications Given: Discontinued Medications Morphine Sulfate (Morphine) 4 mg IVP EDNOW ONE Stop: 05/25/18 13:09 Last Admin: 05/25/18 13:40 Dose: 4 mg Point of Care Test Results: Chemistry 05/25/18 13:37 POC Troponin I 0.00 ng/mL ng/mL (0.00-0.08) Departure - Departure Disposition: [facility] Inpatient Acute Clinical Impression: Hip fracture Qualifiers: Encounter type: initial encounter Fracture type: closed Laterality: right Qualified Code(s): S72.001A - Fracture of unspecified part of neck of right femur, initial encounter for closed fracture Condition: Fair Referrals: Aziza Borden MD [Primary Care Provider] - As per Instructions
[2018-05-25 13:44] LABS: PLATELET COUNT 223 10^3/uL (150-400)
[2018-05-25] MEDS ORDERED: ceFAZolin 2 GM/DEXTROSE 100 ML IV ONE (13:49)
[2018-05-25 13:54] LABS: INR 0.95 (0.83-1.16); PROTIME(PATIENT) 12.3 SEC (12.0-15.0)
[2018-05-25] MEDS ORDERED: ONDANSETRON DISINTEGRATING 4 MG TAB PO PRN (14:53)
[2018-05-25] MEDS ORDERED: ONDANSETRON 4 MG/2 ML VIAL IVP PRN (14:53)
--- NOTE | 2018-05-25 15:19 | CPEKG ---
Test Reason : OPEN Blood Pressure : / mmHG Vent. Rate : 082 BPM Atrial Rate : 082 BPM P-R Int : 115 ms QRS Dur : 098 ms QT Int : 441 ms P-R-T Axes : 080 080 072 degrees QTc Int : 515 ms Sinus rhythm Prolonged QT interval Confirmed by Lorenzo Regalado ([id number]) on 05/25/2018 3:19:11 PM Referred By: LORENZO REGALADO Confirmed By:Lorenzo Regalado
--- NOTE | 2018-05-25 15:50 | GHP ---
[f rep st] HISTORY AND PHYSICAL DATE OF ADMISSION: 05/25/2018 HISTORY OF PRESENT ILLNESS: The patient is a 77-year-old female with a history of Parkinson's, Lewy body dementia, who had a mechanical fall today. She missed a step, landing on her hip. She had fair ly immediate pain, was unable to walk and sought care in the emergency department. When I speak to h er, she is alert and pleasant. She has significant Parkinson's tremor, but she is not entirely orien juliet to place. 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 It sounds like, according to her , it is not clear that she gets the 4 METs on the basis of fa tigue. She does not have a history of vascular disease. She does have a history of constipation. REVIEW OF SYSTEMS: Complete 10-point review of systems conducted, and negative except as noted in th e HPI. PAST MEDICAL HISTORY: Parkinson disease, dementia, appendectomy, cholecystectomy, hysterectomy. SOCIAL HISTORY: Lifelong nonsmoker. Occasional alcohol. No drug use. 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 FAMILY HISTORY: Parents . ALLERGIES: Penicillins. HOME MEDICATIONS: Linaclotide, carbidopa-levodopa, lorazepam 1 daily, quetiapine 25 q.i.d., rasagili ne, rivastigmine patch, sertraline. PHYSICAL EXAMINATION: VITAL SIGNS: Temp 36.4, blood pressure 148/100, pulse 95, breathing 16 times a minute, 92%on room air. GENERAL: No acute distress. HEENT: Sclerae anicteric. Oropharynx clear . Mucous membranes moist. NECK: Supple without lymphadenopathy or JVD. LUNGS: Clear to auscultat ion bilaterally. HEART: S1, S2. ABDOMEN: Soft and nontender. EXTREMITIES: Lower extremities wit hout edema. Her right hip is not foreshortened or rotated. NEUROLOGIC: Notable for a parkinsonian tremor. SKIN: Without rash. Hip x-ray reviewed and interpreted by me shows acute right femoral neck fracture that is minimally im pacted. pelvis observed. Chest x-ray interpreted by me as no acute cardiopulmonary disease. EKG interpreted by me shows sinus at 82 with normal axis and intervals. There are no ST or T-wave ch anges. I have discussed the case with Dr. Sammy Regalado and Dr. Fabian Daniel. ASSESSMENT AND PLAN: A 77-year-old female with mechanical fall hip fracture. 1. Preoperative cardiac evaluation. The patient maybe gets to greater than 4 METs, but either way, she does not have active cardiac condition and family accepts the risks of proceeding to the operatin g room without further workup. I do not believe that further workup would benefit her. 2. Parkinson's. It is important to continue her medicines as much as possible. Her family has a 4 p.m. carbidopa/levodopa here, which we will give to her. 3. Hip fracture. To the operating room this afternoon. 4. Pain. For now, I will just manage her with intravenous pain medicine. Afterwards, recommend sta rting scheduled Tylenol with as needed oxycodone, minimizing intravenous pain medicines. 5. Code: Do not resuscitate. 6. Dementia. Minimize sedating medications. She does take Ativan daily, which I will continue as w dayne as Seroquel, but would not use muscle relaxants or Benadryl or Phenergan. 7. Prophylaxis. Low molecular heparin indicated. Start tomorrow. /[id number]/MODL
--- NOTE | 2018-05-25 15:56 | ASMTCMCOM ---
CM Note CM Note Notes: Reviewed chart. Pt presented to the Emergency Department s/p a mechanical fall. History includes Parkinson's disease, hysterectomy, breann, cystectomy, appy, dementia. Pt is and lives with her . Pt to be admitted for a hip fracture. Discharge needs remain unclear at this time. CM will continue to follow. Discharge Plan: To be determined Date Signed: 05/25/2018 03:55 PM Electronically Signed By:Sonam Villareal RN
[2018-05-25] MEDS: NS 1,000 ML IV SCH (16:26)
[2018-05-25] MEDS: LEVODOPA PO SCH ×2 (17:32→21:53)
[2018-05-25] MEDS: CARBIDOPA PO SCH ×2 (17:32→21:53)
[2018-05-25] MEDS: QUEtiapine FUMARATE 25 MG TAB PO SCH ×2 (17:42→21:53)
--- NOTE | 2018-05-25 18:21 | PDMN ---
Medical Necessity Medical necessity: [facility] Musculoskeletal Disease GR yo w/ acute hip fx s /p mechanical fall. Ortho to consult. Plan for surgery later today. Hx Parkinson's, Dementia. Admit to IP status.
--- NOTE | 2018-05-25 20:57 | GCON ---
[f rep ] CONSULTATION B NUMBER: [id number]. HISTORY OF PRESENT ILLNESS: Patient is a pleasant 77-year-old female who presents with her today following a fall today, 05/25/2018, when she tripped on a step and fell landing on her right side. She was unable to get up or bear weight and was complaining of right hip and groin pain. She proceeded to seek followup here at the hospital. This occurred approximately 3 hours ago. She denies hitting her head or losing consciousness at the time of injury, though she does complain of neck pain. She has no history of prior injury to the right hip. She was ambulating regularly prior to this. She denies any abnormal numbness or tingling, worsening change in distal range of motion or strength, change in heat or color of the extremity. N.p.o. status. Had a croissant at 11 a.m. CODE STATUS: Patient is a DNR. POA/MPOA: Her . PAST MEDICAL HISTORY: Pertinent for Parkinson's disease, dementia and constipation. PAST SURGICAL HISTORY: Pertinent for appendectomy age 13, hysterectomy age 41, cholecystectomy 1968. FAMILY HISTORY: Denies any history of blood clots, bleeding disorders, diabetes. SOCIAL HISTORY: Patient lives at home. 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 Her power of deputy commonwealth's attorney and medical power of deputy commonwealth's attorney are her , who is a retired financial analysis manager. She is DNR. No history of smoking; ETOH; drug use, cannabis or otherwise. ALLERGIES: Penicillin, unknown reaction. REVIEW OF SYSTEMS: Otherwise, 10-point review of systems is negative, except for stated above. MEDICATIONS: Include Azilect 1 mg daily at bedtime, carbidopa/levodopa ER, Exelon patch, Linzess, Seroquel, Zoloft, and Ativan again. PHYSICAL EXAMINATION: NITIAL VITAL SIGNS: She is afebrile at 36.4, heart rate 95, respiratory rate 16 , blood pressure 148/100, oxygen 92% on room air. GENERAL: Patient is alert, able to respond appropriately to question and command. Resting tremor present during physical exam. HEENT: Normocephalic, atraumatic. EOMs intact. Moist buccal mucosa. Patent nares. Hearing intact. NECK: No lymphadenopathy. Full AROM, NTTP. Negative Lhermitte. Negative Spurling B/L. SPINE: NTTP throughout. Negative pelvic squeeze test. CV: Nonlabored breathing. No diaphoresis. ABDOMEN: Soft, nontender, nondistended. MUSCULOSKELETAL: Non-focalized exam of right upper extremity showed no erythema, edema, ecchymosis, or calor otherwise noted. No abnormal bleeding, oozing, discharge. She had FROM B/L in her bilateral upper extremities with no focal deficits noted. 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 Range of motion symmetrical to opposite side. Brisk cap refill present B/L. Focalized exam of bilateral lower extremities: Right hip is shortened and externally rotated. TTP over right hip with mild edema noted. No E/E/C otherwise noted. No evidence of skin breakthrough. Limited ROM of right knee secondary to pain. FROM in right foot and ankle with 5/5 strength present distally. DNVI B/L distally. Calves soft, supple, NTTP B/L with negative bilateral Homans. Brisk cap refill present B/L. HAYDER hose and SCDs not yet present on the patient. Negative passive stretch B/L. SKIN: There is a 30 mm abrasion located to her right elbow. No other rashes, lesions noted, except for stated above. NEURO: Resting tremor seen during exam. Able to repond to command and question though she is a poor historian. SECONDARY SURVEY: Negative, except for stated above. RADIOGRAPHS: Right hip shows a non-displaced impacted femoral neck fracture. No other fractures, malalignments, or deformities are noted. ASSESSMENT: Right femoral neck fracture. PLAN: At this time, patient's physical exam findings and radiographs were explained at length to her and her . We have recommended at this time right hip CRIF. Dr. Bryce Daniel obtained a signed and witnessed informed consent for the patient, signed by her (SIRENA and ), after all of their questions were answered and discussio of R/B/A. Please maintain n.p.o. status at this time. NWB to the right lower extremity and bedrest. Please place HAYDER hose, knee-high, as well as SCDs preoperatively. Will take the patient back for surgical intervention at the earliest available time pending hospital clearance. Advised patient and her to watch for any worsening pain, abnormal numbness or tingling, worsening change in heat or color of the extremity, worsening change in range of motion or strength, and to seek immediate medical attention if seen. They understand and agree with this course of action. Patient was seen and discussed in conjunction with Dr. Daniel. /[id number]/MODL MTDD
--- NOTE | 2018-05-25 21:42 | PDANEPAE ---
ANE History of Present Illness hip fx ANE Past Medical History - Cardiovascular History Hx Hypertension: No Hx Arrhythmias: No Hx Chest Pain: No Hx Coronary Artery / Peripheral Vascular Disease: No Hx CHF / Valvular Disease: No Hx Palpitations: No - Pulmonary History Hx COPD: No Hx Asthma/Reactive Airway Disease: No Hx Recent Upper Respiratory Infection: No Hx Oxygen in Use at Home: No Hx Sleep Apnea: No Sleep Apnea Screening Result - Last Documented: Negative - Endocrine History Hx Diabetes: No Hypothyroid: No Hyperthyroid: No Obesity: no - Renal History Hx Renal Disorders: No - Liver History Hx Hepatic Disorders: No - Neurological & Psychiatric Hx Hx Neurological and Psychiatric Disorders: Yes Neurological / Psychiatric History Comment: parkinson's. Lewy body dementia - Cancer History Hx Cancer: No - Congenital Disorder History Hx Congenital Disorders: No - GI History GERD: no - Chronic Pain History Chronic Pain: Yes ANE Review of Systems Review of systems is: negative Review of Systems: ANE Patient History - Allergies Allergies/Adverse Reactions: Penicillins Allergy (Verified 05/25/18 12:09) - Home Medications Home medications: home medication list seen and reviewed Home Medications: Carbidopa/Levodopa [Rytary ER 23.75 mg-95 mg Cap] 1 cap PO QID 08/13/16 [Last Taken 05/25/18] LORazepam [Ativan (*)] 1 mg PO DAILY PRN 05/25/18 [Last Taken Unknown] Linaclotide [Linzess] 145 mcg PO 05/25/18 [Last Taken 05/25/18] QUEtiapine FUMARATE [Seroquel 25 mg (*)] 25 mg PO QID 05/25/18 [Last Taken 05/24] Rasagiline Mesylate 1 mg PO HS 05/25/18 [Last Taken 05/24/18] Rivastigmine [Exelon 9.5mg/24 hrs] 1 each TD HS 05/25/18 [Last Taken 05/24/18] Sertraline HCl [Zoloft 25mg (*)] 25 mg PO HS 05/25/18 [Last Taken 05/24/18] - NPO status NPO Since - Liquids (Date): 05/25/18 NPO Since - Liquids (Time): 11:30 NPO Since - Solids (Date): 05/25/18 NPO Since - Solids (Time): 11:30 - Anes Hx Anes Hx: no prior problems - Smoking Hx Smoking Status: Never smoked - Alcohol Use Alcohol Use: None - Family Anes Hx Family Anes Hx: none ANE Labs/Vital Signs - Labs Result Diagrams: 05/25/18 13:30 05/25/18 13:30 - Vital Signs Blood Pressure: 169/73 Heart Rate: 83 Respiratory Rate: 18 O2 Sat (%): 98 Height: 162.56 cm Weight: 47.174 kg ANE Physical Exam - Airway Neck exam: FROM Mallampati Score: Class 2 Mouth exam: normal dental/mouth exam - Pulmonary Pulmonary: no respiratory distress, clear to auscultation - Cardiovascular Cardiovascular: regular rate and rhythym, no murmur, rub, or gallop - ASA Status ASA Status: III ANE Anesthesia Plan Anesthesia Plan: general endotracheal anesthesia
[2018-05-25] MEDS: RIVASTIGMINE TD SCH (21:54)
[2018-05-25] MEDS: Rasagiline Mesylate 1 MG PO SCH (21:54)
[2018-05-25] MEDS: SERTRALINE HCL 25 MG TAB PO SCH (21:54)
[2018-05-25] MEDS ORDERED: CEFAZOLIN 2 GM/DEXTROSE/100 ML BAG IV ONE (22:17)
[2018-05-25] MEDS ORDERED: fentaNYL 250 MCG/5 ML INJ ONE (23:25)
[2018-05-25] MEDS ORDERED: PROPOFOL 200 MG/20 ML VIAL ONE (23:25)
[2018-05-25] MEDS ORDERED: ROCURONIUM 50 MG/5 ML VIAL ONE (23:26)
--- NOTE | 2018-05-25 23:37 | POSTANESTH ---
Post Anesthetic Evaluation Cardiovascular Status: Normal, Stable Respiratory Status: Normal, Stable Level of Consciousness/Mental Status: Can Participate in Eval Pain Control: Adequate, Prn Tx Ordered Nausea/Vomiting Control: Adequate, Prn Tx Ordered Complications Possibly Related to Anesthesia: None Noted
[2018-05-26] MEDS ORDERED: BUPIVACAINE/EPI 0.25% 10 ML SDV ONE (00:06)
[2018-05-26] MEDS ORDERED: GLYCOPYRROLATE 0.2 MG/1 ML VIAL ONE (00:35)
[2018-05-26] MEDS ORDERED: ONDANSETRON 4 MG/2 ML VIAL ONE (00:35)
[2018-05-26] MEDS ORDERED: SUGAMMADEX SODIUM 200 MG/2 ML VIAL IVP ONE (00:36)
[2018-05-26] MEDS ORDERED: fentaNYL 100 MCG/2 ML INJ IVP PRN (00:40)
[2018-05-26] MEDS ORDERED: NALOXONE HCL 0.4 MG/ML INJ IVP PRN ×2 (00:40)
--- NOTE | 2018-05-26 00:51 | POSTOPPROG ---
Post Op Note Date of Operation: 05/26/18 Surgeon: Bryce Daniel Teachers[employer] Aide: Janelle Sawyer, MARILEE Anesthesia: GET(General Endotracheal) Pre-op Diagnosis: Right hip femoral neck fx Post-op Diagnosis: Right hip femoral neck fx Indication: Right hip femoral neck fx Procedure: Right hip femoral neck pinning Findings: Right hip femoral neck fx Inf/Abcess present in the surg proc area at time of surgery?: No Depth: Deep Incisional (Fascial) EBL: Minimal Complications: None.
[2018-05-26] MEDS: RIVASTIGMINE TD SCH ×2 (02:37→22:44)
[2018-05-26 05:09] LABS: PLATELET COUNT 209 10^3/uL (150-400)
[2018-05-26] MEDS: CARBIDOPA PO SCH ×4 (05:15→22:42)
[2018-05-26] MEDS: LEVODOPA PO SCH ×4 (05:15→22:42)
[2018-05-26] MEDS: QUEtiapine FUMARATE 25 MG TAB PO SCH ×4 (05:16→22:43)
[2018-05-26] MEDS: ceFAZolin 2 GM/DEXTROSE 100 ML IV SCH ×2 (05:16→14:03)
--- NOTE | 2018-05-26 05:57 | GOP ---
[f rep st] OPERATIVE REPORT DATE OF OPERATION: 05/25/2018 SURGEON: Bryce Daniel MD PREOPERATIVE DIAGNOSIS: Right femoral neck fracture. POSTOPERATIVE DIAGNOSIS: Right femoral neck fracture. PROCEDURE PERFORMED: Closed reduction internal fixation of right femoral neck fracture with large C- arm. FINDINGS: Stable, valgus impacted right femoral neck fracture, subcapital. Bone quality was consist ent with osteopenia. SPECIMENS: None. ESTIMATED BLOOD LOSS: 20 cc. 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 She was unable to bear weight after the fall. She was brought into [facility] ER and found to have a right femoral neck fracture. After discussing the risks, travis efits, and alternatives to surgery, she and her , who is her MPOA and a wool washer, agreed w ith the plan. The risks, benefits, and alternatives were discussed. A signed witnessed informed con sent was obtained and all their questions answered prior to surgery. Please see history and physical for additional information. DESCRIPTION OF PROCEDURE: The patient was identified in the preoperative holding area and her right hip was signed as the designated operative site. The patient was confirmed and left lower extremity HAYDER hose and SCDs. She was intubated on her gurney and then transferred to the fracture table. Well -padded peroneal post was placed. Left upper extremity placed on a well-padded arm board. Right upp er extremity was tucked across her chest. Both lower extremities were placed in well-padded boots fo r the fracture table. Left leg was in extension, right leg slight flexion. With gentle internal rot ation and slight adduction, an appropriate reduction was obtained in both AP and lateral views on the large C-arm. Once this was confirmed, the right hip was prepped and draped in the usual sterile man ner. A standard lateral incision was made over a length of approximately 3 cm directly over the insertion site for 3 cannulated screws. Full-thickness dermal incision was made after anesthetizing the skin w ith 0.5% Marcaine with epinephrine. Careful dissection was taken down through the fat. The IT band was identified and divided in parallel with its fibers. Further dissection was taken down to the lat eral aspect of the greater trochanter. A center inferior guidewire was then placed up through the la teral cortex of the femur, across the femoral neck and fracture site and into the appropriate low conner ter position of the femoral head. Two additional guidewires were then placed, 1 more anterosuperior and posterosuperior. Once these guidewires were placed to the appropriate depths, the lateral cortex was drilled with the appropriate drill for the 7.3 mm screws. Measurements were taken. Three cannu lated screws with washers were then placed across the fracture site and carefully tightened up at the level of the femoral head with excellent fixation. Short threaded screws were used for each. Once all screws were down to the lateral cortex and to the appropriate depth, and finalized images were ta jaden in both AP and lateral planes. The guidewires were then removed. The wound was copiously irriga hayder with sterile saline. Closure was then begun. The IT band was closed with multiple #2 Ethibond sutures. The deep fat space was closed with multipl e 0 Vicryl sutures. 2-0 Vicryl was used to repair the deep dermal layer. [place] were used for the skin. Please note that closure was performed after extensive irrigation with saline. Sterile postop erative surgical dressings were applied. The anesthesia service then took over to wake the patient u p after she was removed from all positioning devices. TOURNIQUET TIME: None. DRAINS: None. IMPLANTS: 7.3 mm cannulated screws with washers x3 from [employer]. COMPLICATIONS: None. DISPOSITION: The patient was extubated and transferred to PACU in stable condition. /[id number]/MODL
[2018-05-26] MEDS: NS 1,000 ML IV SCH ×2 (10:21→22:42)
[2018-05-26] MEDS: ENOXAPARIN 40 MG/0.4 ML SYR SC SCH (10:31)
--- NOTE | 2018-05-26 13:09 | SOAPPROG ---
<Janelle Sawyer S - Last Filed: 05/26/18 13:10> SOAP Progress Note Assessment/Plan: Assessment: POD #1 right hip CRIF. Patient does not want to interact during today's exam with questions and is minimal with her response to command. at bedside. Plan: TDWB to RLE with use of safe ambulation. Maintain dry dressing over right hip. Reinforce prn. Contact our office if notice abnormal bleeding/oozing/discharge, change in heat/color around wound site. Do not change dressing unless d/w our office first. Ice to right hip prn comfort. DVT Prophyalxis: HAYDER jaye, SCDs, IS, Lovenox 40mg SQ per hospitalist reccs. PT/OT: TDWB to RLE. Can maintain ROM of right knee/foot/ankle. Dispo: SNF likely. Will D/C once cleared by hospitalists, CM, PT/OT. RTC 7-10 days for staple removal and repeat radiographs in office. Call to schedule with Dr. Daniel. Advised to watch for abnormal bleeding/oozing/discharge, change in heat/color around wound site or of extremities, worsening change in ROM or strength, cough , congestion, chest pain, cramping in calves/ankles and to seek immediate medical attn if seen. Patient seen/examined in conjunction with Dr. Daniel. 05/26/18 13:03 Subjective: at bedside. Patient has resting tremor. Does not want to answer questions during exam nor command. She will state she is not in pain and is only choosing to respond to certain questions. Unable to obtain subjective info at this time, but says she has been resting comfortably since surgery. Was able to sit up with PT/OT in the bed, no ambulation yet. Objective: Vital Signs Temp Pulse Resp BP Pulse Ox 36.9 C 92 13 127/79 H 93 05/26/18 07:52 05/26/18 07:52 05/26/18 07:52 05/26/18 07:52 05/26/18 07:52 Laboratory Results 05/26/18 04:49 05/26/18 04:49 05/25/18 05/26/18 05/27/18 05:59 05:59 05:59 Intake Total 1540 Output Total 200 Balance 1340 PT 12.3 SEC (12.0-15.0) 05/25/18 13:30 INR 0.95 (0.83-1.16) 05/25/18 13:30 Alert, unable to respond appropriately to question/command at all times. Non- labored breathing, no diaphoresis. Resting tremor present. MS: Right hip well bandaged with no abnormal bleeding/oozing/discharge, change in heat/color around wound site or of extremity. All compartments soft. Legs of equal length. She is willing to wiggle her toes but does not want to try and move her right knee or ankle. HAYDER linton present b/l and SCDs on and pumping b/l. Brisk cap refill b/l. DNVI b/l and she is able to say she feels me touching her with no deficit felt. Radiographs: post-operative films show a well aligned femoral neck fracture in good position with HW in good position/alignment. - Pending Discharge Pending Discharge Within 24 Hours: No ICD10 Worksheet Patient Problems: Problems Problem Status Onset Hip fracture Acute Abdominal pain Acute Dyspnea Acute <Bryce Daniel R - Last Filed: 05/26/18 14:13> SOAP Progress Note Assessment/Plan: Assessment: Plan: Objective: Vital Signs Temp Pulse Resp BP Pulse Ox 36.9 C 90 13 130/77 H 94 05/26/18 07:52 05/26/18 10:31 05/26/18 07:52 05/26/18 10:31 05/26/18 10:31 Laboratory Results 05/26/18 04:49 05/26/18 04:49 05/25/18 05/26/18 05/27/18 05:59 05:59 05:59 Intake Total 1540 Output Total 200 Balance 1340 PT 12.3 SEC (12.0-15.0) 05/25/18 13:30 INR 0.95 (0.83-1.16) 05/25/18 13:30
--- NOTE | 2018-05-26 14:37 | HOSPPROG ---
Hospitalist Progress Note Assessment/Plan: 77y female with c/o hip pain. First encounter, chart reviewed. #Hip fx -POD #1 right hip -TDWB #Mechanical fall -multifactorial # Parkinson's -resting tremor -continue meds # dementia -patient more confused today per -continue reorientation #DVT Prophyalxis -HAYDER hose, SCDs, IS, Lovenox 40mg SQ # pain -none at this time #PT/OT -TDWB to RLE. Can maintain ROM of right knee/foot/ankle. #Dispo -SNF -discussed with case management Subjective: Minimal interaction. Patient does not want to cooperate. says patient is confused. Objective: Vital Signs Temp Pulse Resp BP Pulse Ox 36.9 C 90 13 130/77 H 94 05/26/18 07:52 05/26/18 10:31 05/26/18 07:52 05/26/18 10:31 05/26/18 10:31 Laboratory Results 05/26/18 04:49 05/26/18 04:49 05/25/18 05/26/18 05/27/18 05:59 05:59 05:59 Intake Total 1540 Output Total 200 Balance 1340 PT 12.3 SEC (12.0-15.0) 05/25/18 13:30 INR 0.95 (0.83-1.16) 05/25/18 13:30 - Physical Exam Constitutional: not in pain, chronically ill appearing, cachectic Eyes: PERRL, anicteric sclera, EOMI Ears, Nose, Mouth, Throat: moist mucous membranes, hearing normal, ears appear normal Cardiovascular: regular rate and rhythym, No JVD, No edema Respiratory: no respiratory distress, no rales or rhonchi, reduced air movement Gastrointestinal: normoactive bowel sounds, No tenderness, No ascites Skin: warm, normal color, No mottled Musculoskeletal: joint tenderness, pain with ROM, generalized weakness Neurologic: No AAOx3 Psychiatric: poor insight, poor judgement, poor memory ICD10 Worksheet Patient Problems: Problems Problem Status Onset Abdominal pain Acute Dyspnea Acute Hip fracture Acute
--- NOTE | 2018-05-26 15:37 | ASMTCMCOM ---
CM Note CM Note Notes: PT rec SNF, pt/family agree. Pt husb requests referrals to [facility]. Referrals sent in [employer]. D/c plan of care: SNF Date Signed: 05/26/2018 03:36 PM Electronically Signed By:VITALIY Shaw
--- NOTE | 2018-05-26 17:44 | ASMTCMCOM ---
CM Note CM Note Notes: Pt PASRR still needs to be completed Date Signed: 05/26/2018 05:43 PM Electronically Signed By:VITALIY Shaw
[2018-05-26] MEDS: Rasagiline Mesylate 1 MG PO SCH (22:44)
[2018-05-26] MEDS: SERTRALINE HCL 25 MG TAB PO SCH (22:45)
[2018-05-27] MEDS: LEVODOPA PO SCH ×4 (04:41→21:39)
[2018-05-27] MEDS: CARBIDOPA PO SCH ×4 (04:41→21:39)
[2018-05-27] MEDS: NS 1,000 ML IV SCH ×3 (04:42→22:50)
[2018-05-27] MEDS: QUEtiapine FUMARATE 25 MG TAB PO SCH ×4 (04:42→21:40)
[2018-05-27] MEDS: ENOXAPARIN 40 MG/0.4 ML SYR SC SCH (09:12)
[2018-05-27] MEDS: ACETAMINOPHEN 325 MG TAB PO PRN ×3 (09:12→20:27)
[2018-05-27] MEDS: Linaclotide [Linzess] 145 MCG PO SCH (09:14)
--- NOTE | 2018-05-27 10:48 | SOAPPROG ---
SOAP Progress Note Assessment/Plan: Assessment:Pt. is POD #2 s/p CRIF with Dr. Daniel. She has dementia and has had a difficult time answering questions, but seems to be more alert than yesterday since her Morphine was reduced a bit. Pts. is visiting and looking at different options for a SNF. Plan: -Continue to be TDWB RLE. Pt has not ambulated yet with PT as of this AM. -Continue to maintain dry, clean dressing. Reinforce if necessary. Call our office at [phone] for any concerns about dressing-any increased drainage, surrounding redness, warmth or increased pain at the incision site. Also call for any fevers or change in pain to the right hip. -Continue to ice PRN. -Continue Lovenox per hospitalists for VTE prophylaxis. -Continue oral pain meds as ordered. -Continue HAYDER's and SCD's for mechanical VTE prophylaxis. -Follow up with our office 12-14 days post-operatively for first post-op appointment. Subjective: Pt. is drowsy and only answering some questions, but states that she does feel much better today. She does not complain of any pain at rest, sitting up in bed. She does not have calf pain or numbness of the toes. She does not answer any other questions. Her says she seems more alert than she was yesterday. Objective: Pt. calm, cooperative, resting in bed-sitting up. Her breathing is easy and unlabored. Her right hip inspection reveals an intact and dry dressing with no surrounding redness, warmth, swelling or drainage. Distally she is able to feel light touch to both feet in as much as she is able to respond. She does wiggle the does and dorsiflex the ankles. The skin is warm dry and pink to both feet with brisk cap. refill, pedal pulses are brisk. 05/27/18 10:35 Objective: Vital Signs Temp Pulse Resp BP Pulse Ox 37.2 C 96 16 128/72 H 96 05/27/18 07:36 05/27/18 07:36 05/27/18 07:36 05/27/18 07:36 05/27/18 07:36 Laboratory Results 05/26/18 04:49 05/26/18 04:49 05/26/18 05/27/18 05/28/18 05:59 05:59 05:59 Intake Total 1540 2540 Output Total 200 475 Balance 1340 2065 PT 12.3 SEC (12.0-15.0) 05/25/18 13:30 INR 0.95 (0.83-1.16) 05/25/18 13:30 ICD10 Worksheet Patient Problems: Problems Problem Status Onset Hip fracture Acute Abdominal pain Acute Dyspnea Acute
--- NOTE | 2018-05-27 13:51 | ASMTCMCOM ---
CM Note CM Note Notes: Met with Pt and Pierre and he has agreed on [facility] for SNF. CM here for needs. Plan: Likely discharge to [facility] 05/28 Date Signed: 05/27/2018 01:50 PM Electronically Signed By:Adwoa Sotelo
--- NOTE | 2018-05-27 13:51 | HOSPPROG ---
Hospitalist Progress Note Assessment/Plan: 77y female with c/o hip pain. #Hip fx -POD #2 right hip -TDWB #Mechanical fall -multifactorial # Parkinson's -resting tremor -continue meds -severe # dementia -patient more confused then baseline -continue reorientation #Nutrition -pt with aspiration risk -family to decide comfort eating -consider PEG if family wants aggressive treatment #DVT Prophyalxis -HAYDER hose, SCDs, IS, Lovenox 40mg SQ # pain -none at this time #PT/OT -TDWB to RLE. Can maintain ROM of right knee/foot/ankle. #Dispo -SNF vs Hospice -discussed with case management -D/W daughter in law Subjective: Minimal verbal interaction. Follows commands. Objective: Vital Signs Temp Pulse Resp BP Pulse Ox 36.5 C 91 15 126/77 H 100 05/27/18 11:57 05/27/18 11:57 05/27/18 11:57 05/27/18 11:57 05/27/18 11:57 Laboratory Results 05/26/18 04:49 05/26/18 04:49 05/26/18 05/27/18 05/28/18 05:59 05:59 05:59 Intake Total 1540 2540 Output Total 200 475 150 Balance 1340 2065 -150 PT 12.3 SEC (12.0-15.0) 05/25/18 13:30 INR 0.95 (0.83-1.16) 05/25/18 13:30 - Physical Exam Constitutional: not in pain, chronically ill appearing Eyes: PERRL, anicteric sclera Ears, Nose, Mouth, Throat: moist mucous membranes, hearing normal Cardiovascular: No JVD, No edema Respiratory: no respiratory distress, reduced air movement Gastrointestinal: No tenderness, No ascites Skin: warm, normal color Musculoskeletal: no joint effusions, generalized weakness Psychiatric: poor judgement, poor memory ICD10 Worksheet Patient Problems: Problems Problem Status Onset Abdominal pain Acute Dyspnea Acute Hip fracture Acute
[2018-05-27] MEDS: LORazepam 1 MG TAB PO PRN (15:49)
[2018-05-27] MEDS: RIVASTIGMINE TD SCH (21:40)
[2018-05-27] MEDS: Rasagiline Mesylate 1 MG PO SCH (21:40)
[2018-05-27] MEDS: SERTRALINE HCL 25 MG TAB PO SCH (21:40)
[2018-05-27] MEDS ORDERED: BISACODYL 10 MG SUPP PR PRN (22:18)
[2018-05-27] MEDS ORDERED: LACTULOSE 20 GM/30 ML UDCUP PO PRN (22:18)
[2018-05-27] MEDS ORDERED: POLYETHYLENE GLYCOL 3350 17 GM PKT PO PRN (22:18)
[2018-05-27] MEDS: MAGNESIUM HYDROXIDE 30 ML UDCUP PO PRN (22:50)
[2018-05-28] MEDS: ACETAMINOPHEN 325 MG TAB PO PRN ×2 (05:33→10:54)
[2018-05-28] MEDS: LEVODOPA PO SCH ×4 (05:34→21:07)
[2018-05-28] MEDS: CARBIDOPA PO SCH ×4 (05:34→21:07)
[2018-05-28] MEDS: QUEtiapine FUMARATE 25 MG TAB PO SCH ×4 (05:35→21:09)
[2018-05-28] MEDS: ENOXAPARIN 40 MG/0.4 ML SYR SC SCH (08:52)
[2018-05-28] MEDS: SENNOSIDES/DOCUSATE SODIUM TAB PO SCH ×3 (08:52→22:47)
[2018-05-28] MEDS: NS 1,000 ML IV SCH (09:16)
[2018-05-28] MEDS: Linaclotide [Linzess] 145 MCG PO SCH (11:27)
--- NOTE | 2018-05-28 12:55 | HOSPPROG ---
Hospitalist Progress Note Assessment/Plan: The patient is a 77-year-old female with a history of Parkinson's, Lewy body dementia, who had a mechanical fall and sustained a hip fracture. First encounter, chart reviewed. #Hip fx -POD #3 right hip -TDWB #Mechanical fall -multifactorial # Parkinson's -resting tremor # Lewy body dementia -better today, more interactive #hypoxia -O2 sats on room air drop in the mid 70's #Nutrition -pt with aspiration risk -family to decide comfort eating #DVT Prophyalxis -HAYDER thompsone, SCDs, IS, Lovenox 40mg SQ #Dispo: pending, she was able to stand today w OT, isn't quite ready for Hospice; continue supportive care, I'm concerned about her aspiration and concern for pna. Will get a chest x ray. Subjective: Natalia is not c/o pain, but due to her dementia may have difficulty communicating this. Objective: Vital Signs Temp Pulse Resp BP Pulse Ox 36.9 C 96 19 155/81 H 94 05/28/18 11:13 05/28/18 11:13 05/28/18 11:13 05/28/18 11:13 05/28/18 11:13 Laboratory Results 05/26/18 04:49 05/26/18 04:49 05/27/18 05/28/18 05/29/18 05:59 05:59 05:59 Intake Total 2540 2600 Output Total 475 1750 Balance 2065 850 PT 12.3 SEC (12.0-15.0) 05/25/18 13:30 INR 0.95 (0.83-1.16) 05/25/18 13:30 - Physical Exam Constitutional: chronically ill appearing, uncomfortable Eyes: PERRL Ears, Nose, Mouth, Throat: hearing normal Cardiovascular: regular rate and rhythym Respiratory: no respiratory distress, reduced air movement (bases) Gastrointestinal: normoactive bowel sounds Skin: warm Musculoskeletal: muscular tenderness, generalized weakness Neurologic: other (alert and oriented to herself) ICD10 Worksheet Patient Problems: Problems Problem Status Onset Hip fracture Acute Abdominal pain Acute Dyspnea Acute
[2018-05-28] MEDS: traMADol 50 MG TAB PO PRN ×2 (13:01→21:34)
--- NOTE | 2018-05-28 15:15 | SOAPPROG ---
SOAP Progress Note Assessment/Plan: Assessment: POD 2 s/p R hip CRIF for valgus impacted sub-cap femoral neck fracture. Recovering well, considering her co-morbidities, most notably Parkinson's and Dementia. Plan: Continue with established post-op plan. PT/OT. TDWB RLE. Fall precautions. Re-emphasize precautions. Modalities and analgesics prn. Continue mechanical and chemo VTE prophylaxis for at least 2 weeks. Dispo to SNF, likely [facility]. No smoking or NSAIDs. RTC POD 10-14 for staple removal and first out pt f/u, including new XRs. All questions have been answered and they are very happy with their care. RTC as above or sooner prn. 05/28/18 15:11 Subjective: Generally doing well. is at bedside. PT working with Natalia. She denies any severe R hip pain. No numbness or tingling in BLEs. She denies any noted calf or posterior knee pain. Per PT, she is struggling to maintain her TDWB RLE precautions. Objective: Vital Signs Temp Pulse Resp BP Pulse Ox 36.9 C 96 19 155/81 H 94 05/28/18 11:13 05/28/18 11:13 05/28/18 11:13 05/28/18 11:13 05/28/18 11:13 Laboratory Results 05/26/18 04:49 05/26/18 04:49 05/27/18 05/28/18 05/29/18 05:59 05:59 05:59 Intake Total 2540 2600 Output Total 475 1750 Balance 2065 850 PT 12.3 SEC (12.0-15.0) 05/25/18 13:30 INR 0.95 (0.83-1.16) 05/25/18 13:30 R hip dsgs C/D/I. Wound is benign appearing, noe intact. No significant e/ e/e/c. Thigh soft, no palp hematoma. Compartments soft throughout. Hip ROM 0- 90 with pain during transition. Knee and ankle ROM also somewhat difficult 2/2 varying pain. No calf TTP, edema and Negative Shawna's BLE. DNVI BLE. ICD10 Worksheet Patient Problems: Problems Problem Status Onset Hip fracture Acute Abdominal pain Acute Dyspnea Acute
[2018-05-28] MEDS: Rasagiline Mesylate 1 MG PO SCH (21:06)
[2018-05-28] MEDS: LORazepam 1 MG TAB PO PRN (21:09)
[2018-05-28] MEDS: SERTRALINE HCL 25 MG TAB PO SCH (21:09)
[2018-05-28] MEDS: RIVASTIGMINE TD SCH (21:26)
[2018-05-29 05:13] LABS: PLATELET COUNT 201 10^3/uL (150-400)
--- NOTE | 2018-05-29 09:40 | HOSPPROG ---
Hospitalist Progress Note Assessment/Plan: The patient is a 77-year-old female with a history of Parkinson's, Lewy body dementia, who had a mechanical fall and sustained a hip fracture. #right femoral neck fx -s/p closed reduction and internal fixation -TDWB #Mechanical fall -multifactorial # Parkinson's -resting tremor # Lewy body dementia -more interactive -on Seroquel and rn ativan, decreased these doses due to sedation and not breathing deeply #hypoxia -chest x ray shows peribronchial thickening w small poss bibasilar infiltrates -wbc stable, not febrile; will follow, suspect she is drowsy, has significant dementia and not taking deep breaths #Nutrition -pt with aspiration risk -appreciate ST seeing #constipation -bowel protocol #DVT Prophyalxis -HAYDER linton, SCDs, IS, Lovenox 40mg SQ #Dispo: Palliative-need to discuss w her , goals of care. She is doing well with getting oob, but isn't deep breathing. High risk of pneumonia. Subjective: Natalia said she is feeling fine this morning. Objective: Vital Signs Temp Pulse Resp BP Pulse Ox 37.0 C 99 14 157/78 H 95 05/29/18 08:00 05/29/18 08:00 05/29/18 08:00 05/29/18 08:00 05/29/18 08:00 Laboratory Results 05/29/18 04:34 05/26/18 04:49 05/28/18 05/29/18 05/30/18 05:59 05:59 05:59 Intake Total 2600 Output Total 1750 Balance 850 PT 12.3 SEC (12.0-15.0) 05/25/18 13:30 INR 0.95 (0.83-1.16) 05/25/18 13:30 - Physical Exam Constitutional: chronically ill appearing, other (thin) Eyes: PERRL Ears, Nose, Mouth, Throat: hearing normal Cardiovascular: regular rate and rhythym Respiratory: no respiratory distress, clear to auscultation, reduced air movement (bases) Skin: warm Musculoskeletal: generalized weakness Psychiatric: interacting appropriately, poor insight, poor judgement, poor memory ICD10 Worksheet Patient Problems: Problems Problem Status Onset Hip fracture Acute Abdominal pain Acute Dyspnea Acute
[2018-05-29] MEDS: SENNOSIDES/DOCUSATE SODIUM TAB PO SCH ×2 (09:48→20:18)
[2018-05-29] MEDS: QUEtiapine FUMARATE 25 MG TAB PO SCH ×2 (09:48→12:55)
[2018-05-29] MEDS: ACETAMINOPHEN 325 MG TAB PO PRN ×2 (09:50→20:18)
[2018-05-29] MEDS: LEVODOPA PO SCH ×4 (09:58→20:24)
[2018-05-29] MEDS: CARBIDOPA PO SCH ×4 (09:58→20:24)
[2018-05-29] MEDS: ENOXAPARIN 40 MG/0.4 ML SYR SC SCH (09:58)
[2018-05-29] MEDS: MAGNESIUM HYDROXIDE 30 ML UDCUP PO PRN (10:04)
[2018-05-29] MEDS ORDERED: LORazepam 1 MG TAB PO PRN (14:07)
--- NOTE | 2018-05-29 14:26 | SOAPPROG ---
SOAP Progress Note Assessment/Plan: Assessment: POD #3 right hip CRIF. Patient is more interactive today and is sitting up in chair with pain controlled and eating. at bedside. Plan: TDWB to RLE with use of safe ambulation. Maintain dry dressing over right hip. Reinforce prn. Contact our office if notice abnormal bleeding/oozing/discharge, change in heat/color around wound site. Do not change dressing unless d/w our office first. Ice to right hip prn comfort. DVT Prophyalxis: HAYDER linton, SCDs, IS, Lovenox 40mg SQ per hospitalist reccs. PT/OT: TDWB to RLE. Can maintain ROM of right knee/foot/ankle. Dispo: SNF likely. Will D/C once cleared by hospitalists, CM, PT/OT. RTC 10-12 days from time of surgery for staple removal and repeat radiographs in office. Call [phone] Daniel. Advised to watch for abnormal bleeding/oozing/discharge, change in heat/color around wound site or of extremities, worsening change in ROM or strength, cough , congestion, chest pain, cramping in calves/ankles and to seek immediate medical attn if seen. Patient seen/examined in conjunction with Dr. Daniel. 05/29/18 14:23 05/29/18 14:27 Subjective: at bedside. Patient has resting tremor. Is more alert than at previous visits; patient's was concerned that the opiates were having a "snowing " effect on her but she is now doing better with decreased pain medication. She has not yet been ambulating but is getting up in chair. Was able to sit up with PT/OT in the chair. Denies pain, numbness/tingling, worsening change in heat/color of extremities or around wound site. She states she has been eating better. Objective: Vital Signs Temp Pulse Resp BP Pulse Ox 37.0 C 99 14 157/78 H 95 05/29/18 08:00 05/29/18 08:00 05/29/18 08:00 05/29/18 08:00 05/29/18 08:00 Laboratory Results 05/29/18 04:34 05/26/18 04:49 05/28/18 05/29/18 05/30/18 05:59 05:59 05:59 Intake Total 2600 Output Total 1750 Balance 850 PT 12.3 SEC (12.0-15.0) 05/25/18 13:30 INR 0.95 (0.83-1.16) 05/25/18 13:30 Alert, able to respond appropriately to question/command though her affect is flat today. Non-labored breathing, no diaphoresis. Resting tremor present. Afebrile. Sitting up in chair. MS: Right hip well bandaged with no abnormal bleeding/oozing/discharge, change in heat/color around wound site or of extremity. All compartments soft. Legs of equal length. She is able to wiggle her toes without difficulty. DNVI with no focal deficits noted. HAYDER linton present b/l. Brisk cap refill b/l. Radiographs: post-operative films show a well aligned femoral neck fracture in good position with HW in good position/alignment. ICD10 Worksheet Patient Problems: Problems Problem Status Onset Hip fracture Acute Abdominal pain Acute Dyspnea Acute
[2018-05-29] MEDS: traMADol 50 MG TAB PO PRN ×2 (16:07→23:40)
[2018-05-29] MEDS: Linaclotide [Linzess] 145 MCG PO SCH (16:07)
[2018-05-29] MEDS: SERTRALINE HCL 25 MG TAB PO SCH (20:18)
[2018-05-29] MEDS: Rasagiline Mesylate 1 MG PO SCH (20:19)
[2018-05-29] MEDS: RIVASTIGMINE TD SCH (21:00)
[2018-05-29] MEDS ORDERED: QUEtiapine FUMARATE 25 MG TAB PO SCH ×2 (21:00)
[2018-05-30] MEDS: LEVODOPA PO SCH ×2 (05:19→12:00)
[2018-05-30] MEDS: CARBIDOPA PO SCH ×2 (05:19→12:00)
[2018-05-30 07:35] VITALS: BP 166/69
[2018-05-30] MEDS: Linaclotide [Linzess] 145 MCG PO SCH (07:48)
[2018-05-30] MEDS: SENNOSIDES/DOCUSATE SODIUM TAB PO SCH (08:00)
[2018-05-30] MEDS: traMADol 50 MG TAB PO PRN (08:06)
[2018-05-30] MEDS: ENOXAPARIN 40 MG/0.4 ML SYR SC SCH (08:06)
[2018-05-30] MEDS ORDERED: QUEtiapine FUMARATE 25 MG TAB PO SCH (09:00)
[2018-05-30] MEDS ORDERED: METHOCARBAMOL 750 MG TAB PO PRN (09:26)
--- NOTE | 2018-05-30 09:29 | HOSPPROG ---
Hospitalist Progress Note Assessment/Plan: The patient is a 77-year-old female with a history of Parkinson's, Lewy body dementia, who had a mechanical fall and sustained a hip fracture. #right femoral neck fx -s/p closed reduction and internal fixation -TDWB #Mechanical fall -multifactorial # Parkinson's -resting tremor # Lewy body dementia -more interactive -on Seroquel and rn ativan, decreased these doses due to sedation and not breathing deeply #hypoxia -chest x ray shows peribronchial thickening w small poss bibasilar infiltrates -wbc stable, not febrile; will follow, suspect she is drowsy, has significant dementia and not taking deep breaths #Nutrition -pt with aspiration risk -appreciate ST seeing #constipation -bowel protocol #DVT Prophyalxis -HAYDER linton, SCDs, IS, Lovenox 40mg SQ #Dispo:dc today w Palliative care at [facility] Subjective: Natalia is much more interactive, has neck pain. Objective: Vital Signs Temp Pulse Resp BP Pulse Ox 36.6 C 84 16 166/69 H 94 05/30/18 07:34 05/30/18 07:34 05/30/18 07:34 05/30/18 07:34 05/30/18 07:34 Microbiology 05/29/18 15:00 Respiratory Panel (PCR) - Final Nasal, Sinus - [place] Viral Transport No Organism Detected By Pcr Laboratory Results 05/29/18 04:34 05/26/18 04:49 05/29/18 05/30/18 05/31/18 05:59 05:59 05:59 Intake Total 200 Output Total 400 Balance -200 PT 12.3 SEC (12.0-15.0) 05/25/18 13:30 INR 0.95 (0.83-1.16) 05/25/18 13:30 - Physical Exam Constitutional: uncomfortable, other (thin) Eyes: PERRL Ears, Nose, Mouth, Throat: hearing normal Cardiovascular: regular rate and rhythym Respiratory: no respiratory distress, clear to auscultation, reduced air movement (bases) Skin: warm Musculoskeletal: generalized weakness Psychiatric: interacting appropriately, poor insight, poor judgement, poor memory ICD10 Worksheet Patient Problems: Problems Problem Status Onset Hip fracture Acute Abdominal pain Acute Dyspnea Acute
--- NOTE | 2018-05-30 09:42 | PDIAF ---
- Diagnosis Diagnosis: right femoral neck fx s/p repair, parkinsons, lewy body dementia Code Status: Do Not Resuscitate - Medication Management Discharge Medications: electronically signed and located in the Home Medication List. PICC Care - Routine: N/A - Orders Services needed: Physical Therapy, Occupational Therapy Isolation Type: None Oxygen: 2 liters Diet Recommendation: no restrictions on diet Diet Texture: Dysphagia 2 - Mechanically Altered - Chopped, Ground, Thin Liquids , Meds Whole w/Liquids, Meds Whole in Puree Additional Instructions: Regarding Orthopedic Instructions for Right Hip (Dr. Daniel): -Touch down weight bearing as shown for right hip. Use PT/OT exercises shown in hospital. -Maintain dry dressing until first post-op appointment. Can reinforce as needed. Questions/concerns regarding dressing, abnormal bleeding/oozing/ discharge can be addressed to our office at [phone]. -DVT Prevention: continue HAYDER compression hose,continue Lovenox as prescribed by hospitalists. Continue breathing spirometry shown. -Pain Meds: take as directed and dispensed by the hospitalists. -Return to clinic in 7-10 days following surgery for first post op appointment or with questions/concerns which arise. -Please watch for fever, chills, abnormal numbness/tingling, worsening pain, bleeding/oozing/discharge, change in heat/color of extremity or around wound sites, abnormal distal swelling, cramping in your calves/ankles and to seek immediate medical attention if seen. Any questions/concerns feel free to call our office at [phone]. Continue Lovenox until patient is more mobile patient had been or Seroquel 25 mg QID, this has been decreased due to sedation Ativan has been decreased from 1 mg to 0.5 mg due to sedation Use warm compresses to her neck daily, has neck spasms Recommending Palliative consult at the rehab facility - Follow Up Care Current Providers and Referrals: Aziza Borden MD [Primary Care Provider] - As per Instructions Bryce Daniel MD [Medical Doctor] -
--- NOTE | 2018-05-30 10:07 | GDS ---
[f rep st] DISCHARGE SUMMARY DISCHARGE DIAGNOSES: 1. Right femoral neck fracture. 2. Mechanical fall. 3. Parkinson's. 4. Lewy body dementia. 5. Hypoxemia. 6. Poor nutrition intake with high risk of aspiration. 7. Constipation. 8. Neck pain. CONSULTATION: Dr. Daniel. HISTORY AND HOSPITAL COURSE: Briefly, the patient is a very sweet 77-year-old female with a history of Parkinson's and Lewy body dementia who had a mechanical fall and sustained a hip fracture. She wa s seen and evaluated by Dr. Daniel and has a closed reduction internal fixation. She has been able to get out of bed with assist. The main issue is she is having some ongoing neck pain. Also, becau se of her Lewy body dementia and Parkinson's, at times it has been difficult for her to work on cough ing and deep breathing. Today, she will be discharged to [facility]. HOSPITAL COURSE PER PROBLEM: 1. Right femoral neck fracture. She is touch down weightbearing, stable. 2. Mechanical fall. This is due to her Parkinson's as well as her dementia. 3. Parkinson's. She has a significant resting tremor. Resumed her home medications. 4. Lewy body dementia. She is much more interactive today. She has been on Seroquel 25 mg four melody es daily, this dose has been decreased which has helped her be more alert and interactive. 5. Hypoxemia. I am very concerned she could develop pneumonia. I reviewed this with her . Her chest x-ray shows peribronchial thickening. Her white blood cell count has been stable. She is not febrile. I suspect that she has atelectasis. 6. Nutrition. She is at high risk of aspiration. The family does not want any type of PEG tube luis alberto amos in her. 7. Constipation on the bowel protocol. 8. Neck pain. Ordered Voltaren cream as well as a muscle relaxant. DISCHARGE CONDITION: Stable. Blood pressure is 166/69, heart rate is 74, respiratory rate is 16, O2 sats on 2 L are 94%, temperature is 36.6 Celsius. MEDICATIONS AT DISCHARGE: Please see the EMR. DISCHARGE INSTRUCTIONS: 1. Her doses of Seroquel and Ativan have been decreased. 2. Touchdown weightbearing as tolerated. 3. To follow up with Dr. Daniel in 7-10 days. Greater than 30 minutes discharging and coordinating her care. /[id number]/MODL
--- NOTE | 2018-05-30 10:39 | ASMTLACE ---
LACE Length of stay for Answers: 7-13 days current admission Acuity / Level of Answers: Yes Care: Did the patient have an inpatient admission? Comorbidities - select Answers: Dementia all that apply Other Notes: Parkinson's disease # of Emergency department Answers: 1-2 visits in the last 6 months Score: 13 Date Signed: 05/30/2018 10:38 AM Electronically Signed By:Elsa Martino RN
--- NOTE | 2018-05-30 11:17 | ASMTDCNOTE ---
Case Management Discharge Discharge Order Complete? 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 Michael at notified. RN to call report, d/t dementia, pt will transport by stretcher. Date Signed: 05/30/2018 11:16 AM Electronically Signed By:Elsa Martino RN
[2018-05-30] MEDS ORDERED: DICLOFENAC SODIUM 1% 100 GM GEL TP SCH (12:00)
--- NOTE | 2018-05-30 12:16 | SOAPPROG ---
SOAP Progress Note Assessment/Plan: Assessment: POD #4 right hip CRIF. Patient is more interactive today and is sitting up in chair with pain controlled and eating. at bedside. Plan: TDWB to RLE with use of safe ambulation. Maintain dry dressing over right hip. Reinforce prn. Contact our office if notice abnormal bleeding/oozing/discharge, change in heat/color around wound site. Do not change dressing unless d/w our office first. Ice to right hip prn comfort. DVT Prophyalxis: HAYDER linton, SCDs, IS, Lovenox 40mg SQ per hospitalist reccs. PT/OT: TDWB to RLE. Can maintain ROM of right knee/foot/ankle. Dispo: SNF: [facility] today. Will D/C once cleared by hospitalists, CM, PT/ OT. RTC 10-12 days from time of surgery for staple removal and repeat radiographs in office. Call [phone] Daniel. Advised to watch for abnormal bleeding/oozing/discharge, change in heat/color around wound site or of extremities, worsening change in ROM or strength, cough , congestion, chest pain, cramping in calves/ankles and to seek immediate medical attn if seen. Patient seen/examined in conjunction with Dr. Daniel. Subjective: at bedside. Patient has resting tremor. Is more alert than at previous visits; patient's was concerned that the opiates were having a "snowing " effect on her but she is now doing better with decreased pain medication and her clarity is continuing to improve. She has not yet been ambulating but is getting up in chair. Was able to sit up with PT/OT in the chair. Denies pain, numbness/tingling, worsening change in heat/color of extremities or around wound site. She states she has been eating better. Objective: Vital Signs Temp Pulse Resp BP Pulse Ox 36.6 C 84 16 166/69 H 94 05/30/18 07:34 05/30/18 07:34 05/30/18 07:34 05/30/18 07:34 05/30/18 07:34 Microbiology 05/29/18 15:00 Respiratory Panel (PCR) - Final Nasal, Sinus - [place] Viral Transport No Organism Detected By Pcr Laboratory Results 05/29/18 04:34 05/26/18 04:49 05/29/18 05/30/18 05/31/18 05:59 05:59 05:59 Intake Total 200 Output Total 400 Balance -200 PT 12.3 SEC (12.0-15.0) 05/25/18 13:30 INR 0.95 (0.83-1.16) 05/25/18 13:30 Alert, able to respond appropriately to question/command though her affect is flat today. Non-labored breathing, no diaphoresis. Resting tremor present. Afebrile. Sitting up in chair. MS: Right hip well bandaged with no abnormal bleeding/oozing/discharge, change in heat/color around wound site or of extremity. All compartments soft. Legs of equal length. She is able to wiggle her toes without difficulty. DNVI with no focal deficits noted. HAYDER linton present b/l. Brisk cap refill b/l. - Pending Discharge Pending Discharge Within 24 Hours: Yes Pending Discharge Date: 05/31/18 Pending Discharge Time: 11:00 ICD10 Worksheet Patient Problems: Problems Problem Status Onset Hip fracture Acute Abdominal pain Acute Dyspnea Acute
== END 2018-05-30 12:49 | DRG 482 ==
LOC: F3N 16:15
PROVIDERS: ADMIT Internal Medicine; ATTEND Internal Medicine
PROC: 0QS604Z Reposition Right Upper Femur with Internal Fixation Device, Open Approach (ICD-10-PCS; principal; 2018-05-26)
DX: S72.041A Displaced fracture of base of neck of right femur, initial encounter for closed fracture (principal); W10.8XXA Fall (on) (from) other stairs and steps, initial encounter; Y92.9 Unspecified place or not applicable; Y99.8 Other external cause status; M85.89 Other specified disorders of bone density and structure, multiple sites; R09.02 Hypoxemia; G20 Parkinson's disease; F02.80 Dementia in other diseases classified elsewhere, unspecified severity, without behavioral disturbance, psychotic disturbance, mood disturbance, and anxiety; G31.83 Neurocognitive disorder with Lewy bodies
CPT/HCPCS: 84484-ER; 92526-GN; 92610-GN; 96374; 97110-GP; 97162-GP; 97166-GO; 97530-GO; 97530-GP; 97535-GO; C1713; C1769; J0690; J1650; J2270; J2405; J2704; J3010